=== PATIENT | male | born 1965 | race Caucasian/White ===

== ENCOUNTER 2020-02-03 09:44 | Emergency (ER) | payer OTHER, SELFPAY ==
--- NOTE | ~2020-02-03 | XR_ITS ---
EXAMINATION: XR elbow RT min 3V EXAM DATE: 02/03/2020 10:14 INDICATION: Initial encounter following injury, with pain of the right elbow. TECHNIQUE: Right elbow frontal, lateral with flexion, and oblique projections obtained and reviewed. There is no prior study for comparison. FINDINGS: There are no acute fractures or dislocations identified. There is no subcutaneous gas. T here is soft tissue swelling elbow posteriorly. There are no radiopaque foreign bodies. 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 IMPRESSION: 1. XR elbow RT min 3V exam without acute osseous findings. 2. Soft tissue swelling. 3. Osteoarthritis. Reviewed, dictated and finalized at location B.
--- NOTE | ~2020-02-03 | US_ITS ---
EXAMINATION: US venous doppler UE RT EXAM DATE: 02/03/2020 10:39 INDICATION: Right arm pain, edema. TECHNIQUE: Multiple grayscale, color flow, Doppler sonographic images of the right upper extremity ve ins obtained by technologist. Compression was performed where able. There is no prior study for silviano ayala. FINDINGS: Right upper extremity: Jugular vein: ------------> Normal. Subclavian vein: --------> Normal. Axillary vein:------------> Normal. Brachial vein:-----------> Normal. Basilic vein: ------------> Normal. Cephalic vein: ----------> Normal. Radial vein: ------------> Normal. Ulnar vein: > Normal. IMPRESSION: No deep venous thrombosis of the right upper extremity. Reviewed, dictated and finalized at location B.
--- NOTE | 2020-02-03 09:53 | ED.EXTPRO ---
HPI - Extremity Problem General Chief complaint: Extremity Injury, Upper Stated complaint: arm injury Time Seen by Provider: 02/03/20 09:52 Source: patient Mode of arrival: ambulatory Limitations: no limitations History of Present Illness HPI Narrative: Patient is a 54-year-old male who presents for evaluation of right upper extremity swelling and pain. Patient states pain began on Monday after a very heavy refrigerator door under pressure swung open, smashing into his right elbow. Patient reports worsening pain and swelling at the right elbow that extends into the hand since that time. He reports difficulty with movement. He reports that the area is warm, mildly red. No history of skin infection in the past. No lacerations or abrasions from the impact from the door. Patient has no pain at the shoulder. No numbness. He is right-hand dominant. Related Data Home Medications Medication Instructions Recorded Confirmed No Home Medications 02/03/20 02/03/20 Allergies Allergy/AdvReac Type Severity Reaction Status Date / Time iodine Allergy Mild Unknown Verified 02/03/20 10:17 Review of Systems Review of Systems: Narrative: CONSTITUTIONAL: Denies fever, chills, or sweats. CARDIOVASCULAR: Denies chest pain, palpitations, or edema. RESPIRATORY: Denies cough or dyspnea. GASTROINTESTINAL: Denies abdominal pain, nausea, vomiting, or diarrhea. GENITOURINARY: Denies dysuria or hematuria. SKIN: Denies rash or itching. MUSCULOSKELETAL: Denies back pain, reports right elbow pain, reports swelling of the right forearm and hand NEUROLOGIC: Denies headache, numbness, or weakness. [facility] Past Medical History Medical History (Updated 02/03/20 @ 13:44 by Livia Kasper MD) Hypertension Social History Social History (Updated 02/03/20 @ 10:01 by Livia Kasper MD) Smoking status: Current every day smoker Alcohol intake: never Substance use: never Gender identity (if verbalized by the patient): Male Exam Narrative: Exam Narrative: GENERAL: Awake, alert, conversant HEAD: Normocephalic, atraumatic. EYES: PERRLA and EOMI. scleral icterus present. ENT: Nares clear, no rhinorrhea or epistaxis. Mucous membranes moist. NECK: Supple. CHEST: No respiratory distress, breathing even and non labored HEART: Regular rate, sinus rhythm ABDOMEN:Non distended, non tender EXTREMITIES: Full range of motion at the right elbow, edematous, erythematous, tender to palpation. Edema extends through the right forearm into the right hand. There is a 1 cm healing abrasion/wound to the lateral aspect of the right forearm, nonfluctuant, no purulence. Radial pulse 2+. Intact sensation median, ulnar, radial nerve distribution. Capillary refill less than 3 seconds. SKIN: Warm, dry, no rash. Patient is jaundiced. NEURO:No focal deficits. Alert and oriented x3 Course Vital Signs Vital signs: Vital Signs Temperature 36.6 C 02/03/20 10:00 Pulse Rate 117 H 02/03/20 10:00 Respiratory Rate 16 02/03/20 10:00 Blood Pressure 155/99 H 02/03/20 10:00 Pulse Oximetry 100 02/03/20 10:00 Temperature 36.6 C 02/03/20 10:00 Pulse Rate 98 02/03/20 12:40 Respiratory Rate 16 02/03/20 12:40 Blood Pressure 142/87 H 02/03/20 12:40 Pulse Oximetry 98 02/03/20 12:40 Procedures Orthopedic Splinting/Casting Injury #1: Splinting/Casting Date: 02/03/20 Splinting/Casting Time: 13:41 Side: right Upper Extremity Injury Location: upper arm Upper Extremity Immobilizer: sling/shoulder immobilizer and posterior splint Splint: customized in ED Pre-Procedure Neuro Vascular Exam: normal Post-Procedure Neuro Vascular Exam: normal MDM - Extremity (Nontraumatic) MDM Narrative Medical decision making narrative: Patient presented initially for elbow pain in the setting of a trauma to the elbow, and initial radiographic reads are negative, but after speaking with Dr. Chapman he was concerned
[2020-02-03 10:00] VITALS: BP 155/99; PULSE 117; RESP 16; TEMP 36.6; O2SAT 100
[2020-02-03 10:18] LABS: Basophils Percent Auto 0.5 % (0.2-1.2); Eosinophils Percent Auto 0.2 % (0-4.4); Hematocrit 32.9 % (42.0-52.0); Hemoglobin 11.5 g/dL (14.0-18.0); Immature Granulocyte Absolute 0.02 K/mm3 (0.00-0.031); Immature Granulocyte Percent A 0.3 % (0-0.5); Immature Platelet Fraction Pct 3.7 % (0.9-11.2); Lymphocytes Absolute Auto 0.95 K/mm3 (0.9-3.2); Lymphocytes Percent Auto 14.4 % (18.3-44.2); Mean Corpuscular Hemoglobin 41.1 pg (26-34); Mean Corpuscular Volume 117.5 fl (80-100); Mean Platelet Volume 10.1 fl (7.4-10.4); Monocytes Absolute Auto 0.9 K/mm3 (0.1-0.6); Monocytes Percent Auto 13.9 % (2.6-8.5); Neutrophils Absolute Auto 4.7 K/mm3 (1.3-6.7); Neutrophils Percent Auto 70.7 % (45.5-73.1); Platelet Count Result 72 k/mm3 (150-375); Red Cell Distribution Width 14.7 % (11.5-14.5); White Blood Count 6.6 K/mm3 (4.5-10.0)
[2020-02-03 10:28] LABS: Anion Gap 2 mmol/L (8-16); Blood Urea Nitrogen 10 mg/dL (9-20); CRP 2.5 mg/dL (<1.0); Calcium 8.7 mg/dL (8.4-10.2); Carbon Dioxide 33 mmol/L (22-30); Chloride 101 mmol/L (98-107); Estimated CRCL calculation 126 ml/min; Estimated Glomerular Filt Rate > 60; Glucose 167 mg/dL (75-110); Potassium 3.9 mmol/L (3.4-5.0); Sodium 136 mmol/L (137-145)
[2020-02-03 11:11] LABS: Erythrocyte Sedimentation Rate 83 mm/hr (0-20)
[2020-02-03 12:40] VITALS: BP 142/87; PULSE 98; RESP 16; O2SAT 98
[2020-02-03 12:57] LABS: Alanine Aminotransferase 48 U/L (4-50); Albumin Level 3.2 g/dL (3.5-5.1); Alkaline Phosphatase 205 U/L (38-126); Anion Gap 5 mmol/L (8-16); Aspartate Amino Transferase 71 U/L (17-59); Blood Urea Nitrogen 11 mg/dL (9-20); Calcium 8.9 mg/dL (8.4-10.2); Carbon Dioxide 31 mmol/L (22-30); Chloride 99 mmol/L (98-107); Estimated CRCL calculation 145 ml/min; Estimated Glomerular Filt Rate > 60; Glucose 165 mg/dL (75-110); Lipase 220 U/L (23-300); Potassium 3.9 mmol/L (3.4-5.0); Sodium 135 mmol/L (137-145)
[2020-02-03 14:00] VITALS: BP 135/80; PULSE 108; RESP 14; O2SAT 100
== END 2020-02-03 14:00 | disposition home or self-care (01) ==
PROVIDERS: Emergency Provider Emergency Medicine
DX: S52.124A Nondisplaced fracture of head of right radius, initial encounter for closed fracture (principal); I10 Essential (primary) hypertension; F17.200 Nicotine dependence, unspecified, uncomplicated; M19.021 Primary osteoarthritis, right elbow; D64.89 Other specified anemias; R17 Unspecified jaundice; E80.6 Other disorders of bilirubin metabolism; D69.6 Thrombocytopenia, unspecified; W22.8XXA Striking against or struck by other objects, initial encounter
CPT/HCPCS: 29105; 36415; 73080; 80048; 80053; 83690; 85025; 85055; 85652; 86140; 93971; 99284; A4565

== ENCOUNTER 2020-03-30 12:30 | Outpatient (RCR) | payer OTHER, SELFPAY ==
--- NOTE | 2020-03-06 15:44 | PTOPEVAL ---
Thank you for referring Sailaja Esposito III to [facility].? The patient is scheduled to be seen for therapy? 2-3 x/week for 4 weeks. Please review, sign, date and return this plan of care APURVA. I agree with and certify that the following plan of care is medically necessary. Referring Physician Date Attending Provider: Evaristo Chapman MD Referring Provider: Evaristo Chapman MD *PT Outpatient Evaluation Start: 03/06/20 13:33 Freq: Status: Active Protocol: Document 03/06/20 13:35 ANIKA (Rec: 03/06/20 14:34 ANIKA [id number]) Therapy Assessment Status Assessment Status Assessment Status Evaluation Outpatient Past Medical History Past Medical History Source of Past Medical History Patient,Recalled from Previous Visit, Confirmed with Patient /Family Respiratory History Hx Other Respiratory Disorders Yes: +SMOKER Musculoskeletal History Hx Orthopedic Surgery Yes: R LEG REPAIR- s/p ORIF Evaluation Information Problem Diagnosis right forearm contusion Onset 02/01/20 Cause door hitting arm Additional Evaluation Detail no fracture on x-ray. 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 He is unable to perform job duties due to his pain and limitations. Subjective Information He opened a door on a grain Query Text:As Reported By Patient/ truck that was under pressure Family when the door slammed into his arm. He finished work and worked the next day until the pain was untolerable. 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 He has increased pain with yard work. The pain will wake him at night. He is able to get 2 hours of sleep at night. He reports difficulty with ADL's especially donning/doffing shirts. He is unable to carson riding his motorcycle. He is unable to perform his normal fitness routine due to pain. Prior Level of Function Activity Level (Last 3 Months) Hand Dominance Right Pain Assessment Timing of Pain Assessment Timing of Pain Assessment Assessment
--- NOTE | 2020-03-13 09:23 | PCPTNOTE ---
Patient called & cancelled scheduled appointment this date due to reason unknown. Attempted to call pt,but no voicemail set-up.
--- NOTE | 2020-03-24 12:56 | PCPTNOTE ---
Patient did not show up for scheduled appointment this date. Called and he stated he thought his appointment was tomorrow.
--- NOTE | 2020-04-02 10:06 | PCPTNOTE ---
Pt called to cancel hie remaining visits due to MD sending pt for additional testing. Will DC pt's chart at this time.
--- NOTE | 2020-04-02 10:08 | PCPTNOTE ---
Admitting Provider: Attending Provider: Evaristo Chapman MD Patient:Sailaja Esposito III Date of :1965 Discharge Note Additional therapy visits have been cancelled due to patient has been sent for additional testing by the doctor. Limited progress towards therapy goals noted due to continued pain and symptoms. Patient?s initial visit was on 03/06/2020 13:15 and he had a total of 7 visits. The goals have been not met. Thank you for referring this patient to [facility]. Please review, sign, date and return this discharge summary APURVA. I have been updated about the patient's current status and I agree with discharge from the above service at this time. Referring Physician Date
== END 2020-04-02 14:17 | disposition home or self-care (01) ==
LOC: ANHPT 12:30
PROVIDERS: Referring Provider Orthopaedic Surgery; Visit Provider Orthopaedic Surgery
DX: S50.11XA Contusion of right forearm, initial encounter (principal)
CPT/HCPCS: 97035; 97110; 97140; 97162

== ENCOUNTER 2020-04-17 01:57 | Outpatient (CLI) | payer OTHER, SELFPAY ==
[2020-04-17 20:00] LABS: SARS-CoV-2 RNA PCR Positive
== END 2020-04-17 01:58 | disposition home or self-care (01) ==
LOC: ANHCOVIDDT 01:57
PROVIDERS: Visit Provider Orthopaedic Surgery
DX: U07.1 COVID-19 (principal)
CPT/HCPCS: 87635; C9803; U0003

== ENCOUNTER 2020-04-17 07:31 | Outpatient (CLI) | payer OTHER, SELFPAY ==
--- NOTE | 2020-04-17 08:31 | ECG_ITS ---
Measurements Intervals [place] Rate: 101 P: 24 HI: 130 QRS: 79 QRSD: 91 T: 61 QT: 347 QTc: 452 Interpretive Statements SINUS TACHYCARDIA BORDERLINE ECG Electronically Signed On 04-17-2020 8:48:30 ADOPTION AGENT by Iván Aguillon D.O.
== END 2020-04-17 07:32 | disposition home or self-care (01) ==
PROVIDERS: Visit Provider Anesthesiology
DX: Z87.891 Personal history of nicotine dependence (principal); Z01.818 Encounter for other preprocedural examination; R94.31 Abnormal electrocardiogram [ECG] [EKG]
CPT/HCPCS: 93005

== ENCOUNTER 2020-04-20 02:34 | Day surgery (SDC) | payer OTHER, SELFPAY ==
[2020-04-16 10:29] VITALS: BMI 26.0
--- NOTE | 2020-04-17 14:25 | P.PNAN_ITS ---
Anes - Initial Pre Proc Eval Procedure: Operation Date: 04/20/20 14:00 Proposed Procedures p Debridement Right Olecranon Bursa - Evaristo Chapman MD Date/Time: 04/17/20 14:25 Surgeon: Evaristo hCapman MD Pre Op Diagnosis: right olecranon bursitis Patient Data Age: 54 Gender: M Height: 1.92 m Weight: 95.9 kg Allergies Allergy/AdvReac Type Severity Reaction Status Date / Time iodine Allergy Mild SHELLFISH Verified 04/16/20 10:29 - TOPICAL IS OK TO USE Home Medications Medication Instructions Recorded Confirmed Type No Home Medications 02/03/20 04/16/20 History Patient hx anesthesia problems: none Family hx anesthesia problems: none [facility] Past Medical History Medical History (Updated 04/17/20 @ 14:25 by Manuelito Hendrickson DO) BMI 26.0-26.9,adult Deficient knowledge of leg surgery Olecranon bursitis of right elbow Family History Family History Father Hypertension Heart disease Social History Social History Smoking status: Current every day smoker Second hand tobacco smoke exposure: Yes Additional smoking assessment comments: STATES DOWN TO 1PK/2-3DAYS FROM 1PK/DAY 25+YRS Alcohol intake: current Drinks per week: 2 Substance use: never Substance use type: does not use Living arrangements: alone 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 Gender identity (if verbalized by the patient): Male Spiritual care concerns: No Anes - Eval Final PreProcedure Day of Procedure 04/17/20 14:25 Patient weight: overweight Heart: regular rate and rhythm Lungs: clear to auscultation and normal air movement Airway: Mallampati scale class II Neurological: alert and oriented Last oral intake: >/= 8 hours ASA classification: II Emergent: no Anesthetic plan: proceed Anesthesia type and monitoring: general LMA and standard monitoring Informed Consent: The patient's anesthetic plan and its attendant risks and benefits were discussed with the patient/family/POA. Questions were solicited and answers provided to the satisfaction of the patient/family/POA.
[2020-04-20] VITALS (7 sets, daily range): BP systolic 123–158; BP diastolic 73–96; PULSE 81–131; RESP 10–16; TEMP 37.1; O2SAT 99–100
[2020-04-20] MEDS: ACETAMINOPHEN 500 MG TABLET 1000 MG PO (13:30)
--- NOTE | 2020-04-20 13:56 | WPDHPUPDATE1 ---
History and Physical Update Update Date/Time: 04/20/20 13:56 History and Physical has been reviewed, including an updated exam of the patient. There are NO changes in the patient's condition. Risks, benefits, and alternatives have been discussed and questions answered. Patient agrees to proceed with procedure.
[2020-04-20] MEDS: LACTATED RINGERS 1,000 ML 30 ML IV CONT ×2 (14:00→14:58)
[2020-04-20] MEDS: KETOROLAC 15 MG/ML VIAL (*BKC) IV PUSH (14:00)
[2020-04-20] MEDS: ceFAZolin 2 GM/D5W 50 ML 2 GM/50 ML BAG IVPB (14:34)
[2020-04-20] MEDS: TRANEXAMIC ACID 1,000 MG/10 ML AMPUL 1000 MG IV PUSH (14:41)
--- NOTE | 2020-04-20 15:14 | P.OP_ITS ---
Procedure Note - Detailed Date of procedure: 04/20/20 Pre-op diagnosis: right olecranon bursitis Septic right olecranon bursitis Post-op diagnosis: same Procedure performed: Debridement and closure right olecranon bursa Description of procedure: Patient was identified and proper site identified. He was actually is prepped preoperatively, had the surgery, and recovered all in the operating room because of his COVID positive status. The right upper extremity was noted to have some erythema over the elbow. Small pinhole that was seen previously again noted. No significant fluctuance was appreciated. After general anesthetic induction and intubation, he was put into the left lateral decubitus position taking care to properly pad and position is torso and extremities. A nonsterile tourniquet was placed high on the right arm which was then prepped and draped usual sterile fashion. Antibiotics were held until after cultures were able to be obtained. The extremity was gravity exsanguinated and the tourniquet was inflated to 250 mmHg remaining up for 13 minutes. Longitudinal incision was made over the olecranon posteriorly. There was quite a bit of edematous injury did tissue overlying the olecranon. Deep culture was taken at this point. There were two distinct pockets that were able to be identified corresponding to what was seen on the MRI. The small sinus tract was excised. One of the pockets tracked up into the triceps for a distance of about 3 cm but there was a clear terminus. The other tracked distally along the posterior border the olecranon. It also had a clear terminus. Right over the tip of the olecranon there was some exposed bone. All of the granulation tissue was curetted. There was no significant areas of deteriorating bone found over the tip of the olecranon, consistent with what was seen on the MRI.. After a thorough curetting and removal of devitalized tissue including excising the sinus tract, a sponge with sterile saline was used to gently debride the wound further. The tourniquet was released. The skin edges were quite friable. The sinus tract was reapproximated and then skin edges reapproximated with three 0 nylon suture. A sterile dressing was applied. The IV antibiotics were administered as soon as the tourniquet was released. Estimated blood loss 50 cc. He was recovered in the operating room. There were no known intraoperative complications. Anesthesia: [facility] Surgeon: Evaristo Chapman MD Estimated blood loss (mL): 50 Tourniquet time (min): 13 Drains: No Packing: No Pathology: yes (Deep wound culture taken) Complications: No immediate complications Condition: stable Disposition: other (Recovered in the operating room)
[2020-04-20] MEDS: fentaNYL CITRATE INJ (*CRX) 100 MCG/2 ML VIAL 25 MCG IV PUSH ×8 (15:15→15:28)
--- NOTE | 2020-04-20 16:47 | SUR.PHASEII ---
PT WAS TAKEM CARE OF FOR PHASE 1 AND MOST OF PHASE 2 IN THE OR. WHEN PT WAS STABLE, HE WAS TRANSPORTED BACK TO THE PREOP BATHROOM THAT WAS DESIGNATED FOR PT TO GET DRESSED. HE WAS GIVEN INSTRUCTIONS AND THEN TRANSPORTED TO THE SURGICAL ENTRANCE AWNING WHERE HIS SISTER WAS WAITING FOR PICKUP. PT RECOVERED WITH OUT INCIDENT.
== END 2020-04-20 16:00 | disposition home or self-care (01) ==
PROVIDERS: Visit Provider Orthopaedic Surgery
PROC: (CPT 24110; principal; 2020-04-20 14:00)
DX: M70.21 Olecranon bursitis, right elbow (principal); F17.200 Nicotine dependence, unspecified, uncomplicated
CPT/HCPCS: 24105; 87070; 87075; 87147; 87186; 87205; A9270; J0690; J1100; J1885; J2250; J2405; J2704; J3010; J7120

== ENCOUNTER 2020-06-11 13:52 | Inpatient (IN) | payer SELFPAY ==
[2020-06-11] VITALS (10 sets, daily range): BP systolic 106–136; BP diastolic 61–85; PULSE 98–126; RESP 14–20; TEMP 36.2–36.9; O2SAT 96–100; BMI 26.9
--- NOTE | ~2020-06-11 | CT_ITS ---
EXAMINATION: CT diagnostic chest wo con DATE: 06/13/2020 10:19 INDICATION: Cough. Esophageal and liver mass TECHNIQUE: Computed tomography (CT) of the chest was performed without intravenous contrast. Automate d exposure control and iterative reconstruction technique were employed. Exam dose: 328.12 mGy-cm to connor exam DLP. COMPARISON: 2 view chest 12/04/2013 CT chest 06/11/2020 CT abdomen pelvis FINDINGS: There is prominent focal soft tissue thickening in the right apical area which is considera dennis diminished compared to 12/04/2013 and is likely some residual scarring. Consider PET/CT scan if cli nically indicated to exclude any possible right apical lung cancer. 3 mm right upper lobe nodule (series 4 image 29) 4.5 mm right upper lobe nodule (image 32) 5 mm right upper lobe nodule (image 45). 7.4 mm right upper lobe nodule (image 47) There are scattered smaller right lung nodules. 11 mm groundglass left upper lobe nodule (image 49) There is mild infiltrate and/atelectasis in the right lower lobe, primarily in the periphery. There is asymmetric soft tissue mass density in the lower left cervical area suggesting lymphadenopat hy. Consider PET/CT scan for further evaluation. There is soft tissue thickening of the upper thoracic esophagus. Otherwise no hilar or mediastinal ma ss lesion or lymphadenopathy. Normal heart size. Coronary artery calcifications. No pericardial effusion. There is surface nodularity of the liver consistent with cirrhosis. Ascites is noted. Probable focal splenic infarct posteromedially. Multiple recently reported hepatic space-occupying mass lesions sugg est possible hepatocellular carcinoma and/or metastatic disease. Diffuse osteopenia. IMPRESSION: Left lower cervical soft tissue mass or lymphadenopathy Left apical soft tissue thickening which may represent scarring; malignancy is not excluded. Consider PET/CT imaging Scattered pulmonary nodules; metastatic disease cannot be excluded Cirrhosis, ascites Multiple hepatic space-occupying mass lesions. Primary hepatocellular carcinoma and/or metastatic dis ease must be considered Reviewed, dictated and finalized at [facility]. Reviewed, dictated and finalized at location [facility]. ACCOUNTING CLERK IMPRESSION: Left lower cervical soft tissue mass or lymphadenopathy Left apical soft tissue thickening which may represent scarring; malignancy is not excluded. Consider PET/CT imaging Scattered pulmonary nodules; metastatic disease cannot be excluded Cirrhosis, ascites Multiple hepatic space-occupying mass lesions. Primary hepatocellular carcinoma and/or metastatic disease must be considered
--- NOTE | ~2020-06-11 | XR_ITS ---
EXAMINATION: XR abdomen/kub 1V INDICATION: Abdominal distention, right proximal ureteral stone TECHNIQUE: Supine views of the abdomen were obtained on 2 radiographs. COMPARISON: CT from yesterday FINDINGS: The right proximal ureteral stone described on the comparison CT examination is not definit arina identified. There are multiple gas-filled loops of large and small bowel. No free intraperitoneal gas is identified. IMPRESSION: 1. Known right-sided stone not definitely identified. Reviewed, dictated and finalized at location [facility]. GENERATION REPRESENTATIVE
--- NOTE | ~2020-06-11 | CT_ITS ---
EXAMINATION: CT abdomen pelvis w con INDICATION: Abdominal distention, jaundice TECHNIQUE: Computed tomographic images of the abdomen and pelvis were obtained after the administrati on of 100 cc of Omnipaque 350 intravenous contrast. The dose-length product (DLP) was 1060.83 mGy-cm. Automated exposure control and iterative reconstruction technique were employed. COMPARISON: None available FINDINGS: Minimal dependent atelectasis is present in the lung bases. The heart size is normal. There is nodularity of the liver surface. There is an ill-defined 7.2 x 5.8 cm mass in liver segment VII. There are smaller lesions scattered throughout the liver which measure up to 1.1 cm in liver segment II. There is a moderate volume of ascites. There is recanalization of the umbilical vein. The spleen, pancreas, and adrenal glands are normal. There is mild wall thickening of the gallbladder, likely re lated to liver disease. There is a 4 mm stone of the proximal right ureter which causes mild right hy dronephrosis. A 2 mm nonobstructing stone is present in the right kidney lower pole. There is a 3 mm nonobstructing stone in the lower pole of the left kidney. There is calcified atherosclerosis of the aorta and many of the other arteries. There is mild periportal lymphadenopathy. Gastrohepatic ligamen t lymph nodes are upper limits of normal in size. There is no free intraperitoneal gas or evidence of bowel obstruction. There is severe lumbar spondylosis. IMPRESSION: 1. Cirrhosis with portal hypertension and moderate volume of ascites. 2. Ill-defined mass in the right hepatic lobe measuring up to 7.2 cm which could reflect malignancy o r possibly liver abscess. 3. 4 mm stone of the proximal right ureter with mild right hydronephrosis. 4. Bilateral nonobstructing nephrolithiasis. Reviewed, dictated and finalized at location [facility]. 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 Cirrhosis with portal hypertension and moderate volume of ascites. 2. Ill-defined mass in the right hepatic lobe measuring up to 7.2 cm which coul d reflect malignancy or possibly liver abscess. 3. 4 mm stone of the proximal right ureter with mild right hydronephrosis. 4. Bilateral nonobstructing nephrolithiasis.
--- NOTE | 2020-06-11 14:09 | ECG_ITS ---
Measurements Intervals [place] Rate: 104 P: 76 MN: 137 QRS: 76 QRSD: 98 T: 52 QT: 356 QTc: 469 Interpretive Statements SINUS TACHYCARDIA INCOMPLETE RIGHT BUNDLE BRANCH BLOCK BORDERLINE ST-T WAVE ABNORMALITY- ANTEROLAT/INF LEADS BASELINE ARTIFACT- V4 BORDERLINE ECG Electronically Signed On 06-11-2020 16:04:32 FRUIT THINNER MACHINE OPERATOR by Iván Aguillon D.O.
[2020-06-11] MEDS: SODIUM CHLORIDE 0.9% IV 1,000 ML 999 ML IV CONT ×2 (14:17→15:52)
[2020-06-11] MEDS: PANTOPRAZOLE SODIUM IV 40 MG VIAL IV PUSH (14:18)
[2020-06-11] MEDS: ONDANSETRON INJ 4 MG/2 ML VIAL IV PUSH ×2 (14:18→19:30)
[2020-06-11 14:27] LABS: Basophils Percent Auto 0.2 % (0.2-1.2); Eosinophils Percent Auto 0.2 % (0-4.4); Hematocrit 22.9 % (42.0-52.0); Hemoglobin 7.8 g/dL (14.0-18.0); Immature Granulocyte Absolute 0.07 K/mm3 (0.00-0.031); Immature Granulocyte Percent A 0.7 % (0-0.5); Lymphocytes Absolute Auto 1.27 K/mm3 (0.9-3.2); Mean Corpuscular HGB Conc 34.1 g/dl (32-36); Mean Corpuscular Hemoglobin 38.2 pg (26-34); Mean Corpuscular Volume 112.3 fl (80-100); Mean Platelet Volume 11.2 fl (7.4-10.4); Monocytes Absolute Auto 1.3 K/mm3 (0.1-0.6); Monocytes Percent Auto 11.8 % (2.6-8.5); Neutrophils Percent Auto 75.1 % (45.5-73.1); Platelet Count Result 80 k/mm3 (150-375); Red Blood Count 2.04 M/mm3 (4.6-6.20); White Blood Count 10.6 K/mm3 (4.5-10.0)
[2020-06-11 14:36] LABS: INR 1.8; Prothrombin Time 21.1 Seconds (11.1-14.7)
[2020-06-11 14:37] LABS: Partial Thromboplastin Time 32.5 SECONDS (22.3-36.8)
[2020-06-11 14:44] LABS: Albumin Level 2.3 g/dL (3.5-5.1); Alkaline Phosphatase 117 U/L (38-126); Anion Gap 8 mmol/L (8-16); Aspartate Amino Transferase 54 U/L (17-59); Bilirubin,Total 2.8 mg/dL (0.2-1.3); Blood Urea Nitrogen 32 mg/dL (9-20); Calcium 7.8 mg/dL (8.4-10.2); Carbon Dioxide 27 mmol/L (22-30); Chloride 96 mmol/L (98-107); Estimated CRCL calculation 69 ml/min; Estimated Glomerular Filt Rate 57; Glucose 238 mg/dL (75-110); Lipase 56 U/L (23-300); Potassium 3.7 mmol/L (3.4-5.0); Sodium 131 mmol/L (137-145)
[2020-06-11 14:45] LABS: Lactic Acid Reflex 6.2 mmol/L (0.7-2.1)
[2020-06-11 14:49] LABS: Alanine Aminotransferase 31 U/L (4-50)
[2020-06-11 15:21] LABS: Ethanol < 10 mg/dL (<10)
--- NOTE | 2020-06-11 15:36 | ED.GENADULT ---
HPI - General Adult General Chief complaint: Unspecified Stated complaint: blood in stool/vomit Time Seen by Provider: 06/11/20 14:02 History of Present Illness HPI narrative: Patient is a 34-year-old gentleman who presents emerged part with chief complaint of vomiting blood and blood in stool. Patient states that he has noticed that his abdomen started feeling uncomfortable and then started feeling very nauseated and has had vomit that is consistent with blood clots. Patient states has had black tarry stool patient reports that he felt as though his heart was beating fast and felt weak. Related Data Allergies Allergy/AdvReac Type Severity Reaction Status Date / Time shellfish derived Allergy Other Verified 06/12/20 12:45 Review of Systems Review of Systems: Narrative: A 10 system review of systems was completed on the patient and is negative except for what is stated in the HPI. Nursing and ancillary documentation was reviewed. [facility] Past Medical History Medical History Acute blood loss anemia BMI 26.0-26.9,adult Cirrhosis of liver Decompensated hepatic cirrhosis Deficient knowledge of leg surgery Hematemesis Lactic acidosis Melena MRSA infection Right elbow Thrombocytopenia UGI bleed Surgical History Surgical History H/O foot surgery ORIF of right foot Olecranon bursitis of right elbow Debridement April 20, 2020 Family History Family History Father Hypertension Heart disease Social History Social History Social History: The patient told me that he has not drink in 2 weeks. The last time he drank was vodka with juice. He stated that he would go drink beer with the guys after work and when they played cards he would drink heavily. He stated that he did not drink every day. The patient stated that he has not been smoking cigarettes over the last 3 weeks. He stated that he started smoking at the age of 17 or 18 at least a pack a cigarettes a day. He is single and never been . He has no children. 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 He lives alone. He does not have a durable power claim attorney for healthcare and desires to be a full code. 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 HEAD: Normocephalic, atraumatic. EYES: PERRLA and EOMI. ENT: Nares clear, no rhinorrhea or epistaxis. Mucous membranes moist. NECK: Supple. CHEST: Clear to auscultation. No respiratory distress. HEART: Tachycardic rate and rhythm. No murmur heard. Normal peripheral pulses. ABDOMEN: Soft, mild tenderness to palpation distended, normal active bowel sounds. EXTREMITIES: Normal range of motion. No edema. SKIN: Warm, dry, no rash. NEURO: No focal deficits. Alert and oriented x3. PSYCH: Normal mood and affect. Course Vital Signs Vital signs: Vital Signs Temperature 36.7 C 06/11/20 14:02 Pulse Rate 126 H 06/11/20 14:02 Respiratory Rate 16 06/11/20 14:02 Blood Pressure 106/64 06/11/20 14:02 Pulse Oximetry 100 06/11/20 14:02 Temperature 36.9 C 06/12/20 16:00 Pulse Rate 88 06/12/20 18:00 Respiratory Rate 16 06/12/20 18:00 Blood Pressure 136/72 06/12/20 18:00 Pulse Oximetry 99 06/12/20 18:00 Medical Decision Making Vital Signs Vital Signs: Vital Signs Temperature 36.7 C
[2020-06-11 16:15] LABS: Add Urine Microscopic? YES; Appearance Urine Cloudy (Clear); Bilirubin Urine Negative (Negative); Blood Urine 3+ (Negative); Color Urine Amber (Yellow); Glucose Urine UA 1+ mg/dL (Negative); Hyaline Casts Urine 15-19 /lpf; Ketones Urine Negative (Negative); Leukocyte Esterase Ur 3+ LEU/UL (Negative); Mucus Urine Rare /lpf; Nitrate Urine Negative (Negative); Protein Urine 1+ mg/dL (Negative); RBC Urine 51-75 /hpf (0-2); WBC Urine >75 /hpf
[2020-06-11 16:18] LABS: Specific Grav Ur 1.049 (1.001-1.035)
[2020-06-11 16:19] LABS: Hematocrit 23.1 % (42.0-52.0)
[2020-06-11] MEDS: SODIUM CHLORIDE 0.9% IV 250 ML 30 ML IV CONT (17:19)
[2020-06-11 17:26] LABS: Reflex Lactic Acid Yes or No Add Lactic
[2020-06-11 18:08] LABS: Lactic Acid 3.7 mmol/L (0.7-2.1)
[2020-06-11] MEDS: SODIUM CHLORIDE 0.9% IV 1,000 ML 125 ML IV CONT (19:05)
--- NOTE | 2020-06-11 19:12 | ADMGEN ---
This patient, Sailaja Esposito III, was admitted to Intensive Care Unit-1. Patient/family oriented to hospital policies and general routines including ID bracelet, bed and alarms, visiting hours, pain management, procedures, bathroom and other care routines, personal items, smoking policy, room service/diet, and visiting hours. Information on how to activate the Rapid Response Team has been discussed. Patient/Family are encouraged to report perceived risks to care and to ask questions if they do not understand what they are told or what they should do.
--- NOTE | 2020-06-11 20:28 | PM.IMHP ---
H&P: HPI History of Present Illness Date/Time: 06/11/20 20:28 Chief Complaint: Coffee-ground emesis Narrative: Sailaja Esposito III is a 54 year old male who stated that he has not drink any alcohol and at least 2 weeks. He stated that he did feel that he was drinking that heavily. He stated that he would typically get off of work and go to the bar have a couple drinks with his buddies or if they were playing cards then he would drink heavily at that point. Patient stated that he does not drink every day. He typically drinks beer but here lately he has been drinking vodka with pineapple juice and orange juice and his last drink was about 2 weeks ago. The patient is not on any medications or had any past medical history. The patient stated that he has been taking some Advil for his right elbow infection. He stated that he only took 2 Advil a day for last 2 days. He stated that they really did not help him. Last night he started throwing up dark colored emesis and having dark colored diarrhea. This went on through the night and this morning he decided to call an ambulance. The patient has never had any colonoscopies or endoscopies. He has never seen a GI doctor. He does not routinely go to the doctor. Hemoglobin was 7.8 when he came to the emergency room he was given a unit of blood now it is 8.0. He still continues to complain of nausea and I gave him some Zofran. It looks like in January of 2020 his H&H was 11.5 and 32.9. 6.2 and is now 3.7. Of the abdomen which was read as cirrhosis with portal hypertension to moderate volume of ascites. Ill-defined mass in the right hepatic lobe measuring up to 7.2 cm which could reflect malignancy or possibly liver abscess. 4 mm stone in the proximal right ureter with mild right hydronephrosis. Bilateral nonobstructing nephrolithiasis. The patient was started on a Protonix drip, IV fluids, octreotide and Zofran. GI has been consulted and electronic parts designer as well. The patient has completed a unit of blood. The patient is being admitted to inpatient status on the date of service 06/11/2020. Review of Systems Review of Systems: All systems reviewed & are unremarkable except as noted in HPI and below Constitutional: Constitutional: Reports as per HPI and Reports no additional constitutional complaints Eyes: Eyes: Reports as per HPI and Reports no additional eye complaints ENT: Reports system reviewed and no additional complaints, except as documented and Reports Normal hearing present Cardiovascular: Cardiovascular: Reports no additional cardiovascular complaints Respiratory: Respiratory: Reports no additional respiratory complaints and Reports no additional respiratory complaints Gastrointestinal: Gastrointestinal: Reports as per HPI and Reports no additional gastrointestinal complaints Musculoskeletal: Musculoskeletal: Reports no additional musculoskeletal complaints Integumentary/Breasts: Skin/Breast: Reports system reviewed and no additional complaints, except as docu and Reports as per HPI Neurologic: Reports system reviewed and no additional complaints, except as documented, Reports as per HPI and Reports Normal hearing present Psychiatric: Psychiatric: Reports no additional psychiatric complaints and Reports as per HPI Endocrine: Endocrine: Reports no additional endocrine complaints Hematologic/Lymphatic: Hematologic/Lymphatic: Reports no additional hematologic/lymphatic complaints Allergic/Immunologic: Allergic/Immunologic: Reports no additional allergic/immunologic complaints PMFSH Past Medical History Medical History (Updated 06/11/20 @ 20:37 by Joslyn Gillespie NP) BMI 26.0-26.9,adult Deficient knowledge of leg surgery MRSA infection Right elbow Surgical History Surgical History (Updated 06/11/20 @ 20:37 by Joslyn Gillespie NP) H/O foot surgery ORIF of right foot Olecranon bursitis of right elbow Debridement April 20, 2020 Family History Family History (Reviewed
[2020-06-11] MEDS: SILVER SULFADIAZINE 1% CR 50 GM JAR (*BKC) 1 APPLIC TOPICAL (23:03)
[2020-06-12] VITALS (20 sets, daily range): BP systolic 81–136; BP diastolic 34–77; PULSE 84–104; RESP 16–22; TEMP 36.3–36.9; O2SAT 92–100
[2020-06-12 04:58] LABS: Basophils Percent Auto 0.4 % (0.2-1.2); Eosinophils Absolute Auto 0.1 K/mm3 (0-0.3); Eosinophils Percent Auto 0.7 % (0-4.4); Hematocrit 23.7 % (42.0-52.0); Hemoglobin 8.4 g/dL (14.0-18.0); Immature Granulocyte Absolute 0.07 K/mm3 (0.00-0.031); Immature Granulocyte Percent A 0.7 % (0-0.5); Immature Platelet Fraction Pct 4.7 % (0.9-11.2); Lymphocytes Absolute Auto 1.24 K/mm3 (0.9-3.2); Lymphocytes Percent Auto 12.6 % (18.3-44.2); Mean Corpuscular HGB Conc 35.4 g/dl (32-36); Mean Corpuscular Hemoglobin 37.7 pg (26-34); Mean Corpuscular Volume 106.3 fl (80-100); Mean Platelet Volume 10.4 fl (7.4-10.4); Monocytes Percent Auto 10.2 % (2.6-8.5); Neutrophils Absolute Auto 7.5 K/mm3 (1.3-6.7); Neutrophils Percent Auto 75.4 % (45.5-73.1); Platelet Count Result 55 k/mm3 (150-375); Red Blood Count 2.23 M/mm3 (4.6-6.20); Red Cell Distribution Width 20.2 % (11.5-14.5); White Blood Count 9.9 K/mm3 (4.5-10.0)
[2020-06-12 05:10] LABS: Ammonia < 9 umol/L (9-30)
[2020-06-12 05:12] LABS: Alanine Aminotransferase 25 U/L (4-50); Alkaline Phosphatase 100 U/L (38-126); Anion Gap 2 mmol/L (8-16); Aspartate Amino Transferase 52 U/L (17-59); Blood Urea Nitrogen 32 mg/dL (9-20); Calcium 7.3 mg/dL (8.4-10.2); Carbon Dioxide 30 mmol/L (22-30); Chloride 102 mmol/L (98-107); Estimated CRCL calculation 69 ml/min; Estimated Glomerular Filt Rate 57; Glucose 270 mg/dL (75-110); Lipase 55 U/L (23-300); Magnesium 1.6 mg/dL (1.6-2.3); Potassium 4.2 mmol/L (3.4-5.0); Sodium 134 mmol/L (137-145)
[2020-06-12] MEDS: SODIUM CHLORIDE 0.9% IV 1,000 ML 125 ML IV CONT ×3 (06:14→23:30)
[2020-06-12 09:44] LABS: Hematocrit 23.7 % (42.0-52.0); Hemoglobin 8.3 g/dL (14.0-18.0)
[2020-06-12 09:54] LABS: Lactic Acid Reflex 1.9 mmol/L (0.7-2.1)
--- NOTE | 2020-06-12 10:38 | WPDURCON ---
Assessment and Plan Assessment and plan (1) Ureteral stone: Code(s): N20.1 - Calculus of ureter Status: Acute Assessment and Plan: He is currently asymptomatic from a stone standpoint. He denies any flank pain. He denies any urinary symptoms. He denies any symptoms of infection. His urinalysis does look contaminated with mucus. A culture is pending. He has several other medical issues going on right now including cirrhosis, liver mass, anemia, MRSA infection of the elbow. I will get a KUB. I will start him on Flomax. The stone is small and we will monitor for stone passage. If he develops significant pain or fevers with symptoms of infection we may have to intervene in the form of a stent. In the meantime his medical issues will need to be stabilized. (2) Hydronephrosis: Code(s): N13.30 - Unspecified hydronephrosis Status: Acute Urology Consult Note HPI Date Seen: 06/12/20 Requesting Physician: Rose Taylor MD Primary Care Provider: HOSPICE SUPERINTENDENT PHYSICIAN Consult Narrative Narrative: Sailaja Esposito III is a 54 year old male who was admitted to the ICU with multiple medical problems. He has a liver mass which is being worked up. He has signs of cirrhosis including a side ease and jaundice. He has been having emesis and bloody stools which is led to anemia requiring transfusion. He has had a CT scan on this admission which shows a 4 mm proximal ureteral stone on the right with mild hydronephrosis. He denies any flank pain. He states he has a rib pain when he coughs. He denies any previous stone history. He denies any symptoms of urinary tract infection. He denies any gross hematuria. He denies any dysuria. He denies any fevers. Review of Systems Review of Systems: All systems reviewed & are unremarkable except as noted in HPI and below PMFSH Past Medical History Medical History (Updated 06/12/20 @ 10:43 by Sukhi Kennedy MD) BMI 26.0-26.9,adult Deficient knowledge of leg surgery MRSA infection Right elbow Surgical History Surgical History (Updated 06/11/20 @ 20:37 by Joslyn Gillespie NP) H/O foot surgery ORIF of right foot Olecranon bursitis of right elbow Debridement April 20, 2020 Family History Family History Father Hypertension Heart disease Social History Social History (Updated 06/11/20 @ 20:39 by Joslyn Gillespie NP) Social History: The patient told me that he has not drink in 2 weeks. The last time he drank was vodka with juice. He stated that he would go drink beer with the guys after work and when they played cards he would drink heavily. He stated that he did not drink every day. The patient stated that he has not been smoking cigarettes over the last 3 weeks. He stated that he started smoking at the age of 17 or 18 at least a pack a cigarettes a day. He is single and never been . He has no children. 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 He lives alone. He does not have a durable power civil rights attorney for healthcare and desires to be a full code. Smoking status: Current every day smoker Second hand tobacco smoke exposure: Yes Additional smoking assessment comments: STATES DOWN TO 1PK/2-3DAYS FROM 1PK/DAY 25+YRS Alcohol intake: former Drinks per week: 2 Substance use: never Substance use type: does not use Additional occupation/education comments: [employer] Gender identity (if verbalized by the patient): Male Spiritual care concerns: No Meds Home Medications and Allergies Home Medications Medication Instructions Recorded Confirmed Type silver sulfadiazine 1 % topical 1 applic TOPICAL BID #85 g 06/02/20 06/11/20 Rx cream Allergies Allergy/AdvReac Type Severity Reaction Status Date / Time shellfish derived Allergy Other Verified 06/11/20 14:37 Vital Signs Vital Signs - 24 hr 06/11/20 14:02 06/11/20 16:18 06/11/20 17:24 Temperature 98.1 F
[2020-06-12 10:44] LABS: Iron 90 ug/dL (49-181)
--- NOTE | 2020-06-12 10:47 | WPDCNINT ---
Assessment and Plan Assessment and plan (1) UGI bleed: Code(s): K92.2 - Gastrointestinal hemorrhage, unspecified Status: Acute Assessment and Plan: Most likely variceal bleeding. Rule out peptic ulcer disease Patient received 2 units of packed red cells yesterday. Continue octreotide infusion IV PPI q.12 hours GI consulted and plan for EGD Continue monitoring hemoglobin Vitamin K 10 mg subcu x1 IV fluids IV Rocephin for SBP prophylaxis (2) Hydronephrosis: Code(s): N13.30 - Unspecified hydronephrosis Status: Acute Assessment and Plan: Patient seen by Urology. No intervention planned at this time (3) Ureteral stone: Code(s): N20.1 - Calculus of ureter Status: Acute Assessment and Plan: See above (4) Liver mass: Code(s): R16.0 - Hepatomegaly, not elsewhere classified Status: Acute Assessment and Plan: Ultrasound-guided biopsy is ordered Blood cultures ordered Empiric antibiotics Rocephin and Flagyl for now although it does not appear to be abscess from history. Patient is afebrile and has normal white cell count (5) Cirrhosis of liver: Code(s): K74.60 - Unspecified cirrhosis of liver Status: Acute Assessment and Plan: Workup for cirrhosis is ordered by GI although most secondary to alcohol use (6) UTI (urinary tract infection): Code(s): N39.0 - Urinary tract infection, site not specified Status: Acute Assessment and Plan: IV Rocephin Urine and blood cultures ordered (7) Ascites: Code(s): R18.8 - Other ascites Status: Acute Assessment and Plan: Patient has significant ascites on exam. Although patient is not symptomatic or tender, it is going to make liver biopsy difficult per radiology. Will proceed with diagnostic and therapeutic paracentesis before liver biopsy as per recommendations from radiology Additional Plan DVT prophylaxis -SCDs Stress ulcer prophylaxis -PPI Nutrition -NPO Code Status -patient requests to be Full Code Hunting Sales Associate Consult Note Consult date: 06/12/20 Time Seen: 09:00 HPI: Sailaja Esposito III is a 54 year old male who has not seen a physician in long time presented yesterday with chief complaint of vomiting blood and blood in his stool. Patient told me that he was fine until redness day when he vomited bright red blood and then soon noticed black stools. He had only 1 episode of vomiting but had multiple episodes where he had black stools. Later his stools turned to be watery. He did not had any abdominal pain at that time. He said he waited for a day but did not feel good hence came to the hospital. He denies chest pain shortness of breath hematuria cough chest pain. He states that he has not been out of his house for last 1 week. Denies contact with anyone with COVID-19. Also has not received COVID-19 vaccine yet He has not seen a physician in long time accept elbow surgery had from a injury at work. He told me he smokes 1 pack per day for close to 35 years but his last cigarette was 2-3 weeks ago He also drinks six-pack every day almost daily but has not had any drinks for last 2-3 weeks Review system was also positive for inverted umbilicus, he yellowness in eyes, dark urine. All other systems were reviewed and were negative Review of Systems Review of Systems: All systems reviewed & are unremarkable except as noted in HPI and below (HPI) [facility] Past Medical History Medical History BMI 26.0-26.9,adult Deficient knowledge of leg surgery MRSA infection Right elbow Surgical History Surgical History H/O foot surgery ORIF of right foot Olecranon bursitis of right elbow Debridement April 20, 2020 Family History Family History Father Hypertension Heart disease Social History Social H
[2020-06-12 10:53] LABS: Percent Iron Saturation 58 % (20-50)
[2020-06-12] MEDS: SILVER SULFADIAZINE 1% CR 50 GM JAR (*BKC) 1 APPLIC TOPICAL ×2 (11:30→20:28)
[2020-06-12] MEDS: PANTOPRAZOLE SODIUM IV 40 MG VIAL IV PUSH ×2 (11:30→20:28)
[2020-06-12 11:42] LABS: Glucose Point of Care 249 (65-105)
[2020-06-12] MEDS: INSULIN ASPART (*BKC) 100 UNITS/ML SUB-Q ×2 (11:57→20:34)
[2020-06-12] MEDS: CALCIUM GLUC 1,000 MG/NS 50 ML 1,000 MG/50 ML BAG 100 MG IVPB (12:11)
[2020-06-12 12:13] LABS: Hepatitis B Surface Antigen Negative (Negative)
[2020-06-12] MEDS: metroNIDAZOLE 500 MG/ISO 100ML 500 MG/100 ML BAG 100 MG IVPB ×2 (12:13→17:53)
[2020-06-12 12:19] LABS: HAV RESULT Negative (Negative); Hepatitis B Core IgM Result Negative (Negative)
[2020-06-12 12:31] LABS: Hepatitis C Virus Antibody Negative (Negative)
[2020-06-12 12:48] LABS: Ferritin > 2000.00 ng/mL (11.1-264)
[2020-06-12] MEDS: LACTATED RINGERS 1,000 ML 150 ML IV CONT (13:00)
--- NOTE | 2020-06-12 13:59 | WPDANESEPPF ---
Anes - Initial Pre Proc Eval Procedure: Operation Date: 06/12/20 14:30 Proposed Procedures p Esophagogastroduodenoscopy - Greg Peña MD Date/Time: 06/12/20 13:59 Surgeon: Rose Taylor MD Pre Op Diagnosis: GI bleed Patient Data Age: 54 Gender: M Height: 6 ft 3 in Weight: 97.6 kg Last Vital Signs Temp 97.4 F L 06/12/20 12:48 Pulse 90 06/12/20 12:55 Resp 18 06/12/20 12:55 BP 120/74 06/12/20 12:48 Pulse Ox 100 06/12/20 12:55 Allergies Allergy/AdvReac Type Severity Reaction Status Date / Time shellfish derived Allergy Other Verified 06/12/20 12:45 Home Medications Medication Instructions Recorded Confirmed Type silver sulfadiazine 1 % topical 1 applic TOPICAL BID #85 g 06/02/20 06/12/20 Rx cream Laboratory Tests 06/11/20 06/11/20 06/11/20 14:20 14:20 14:20 WBC 10.6 K/mm3 H K/mm3 (4.5-10.0) RBC 2.04 M/mm3 L M/mm3 (4.6-6.20) Hgb 7.8 g/dL L D g/dL (14.0-18.0) Hct 22.9 % L % (42.0-52.0) MCV 112.3 fl H fl (80-100) MCH 38.2 pg H pg (26-34) MCHC 34.1 g/dl g/dl (32-36) RDW 14.0 % % (11.5-14.5) Plt Count 80 k/mm3 L k/mm3 (150-375) MPV 11.2 fl H fl (7.4-10.4) Immature Gran % (Auto) 0.7 % H % (0-0.5) Neut % (Auto) 75.1 % H % (45.5-73.1) Lymph % (Auto) 12.0 % L % (18.3-44.2) Summers % (Auto) 11.8 % H % (2.6-8.5) Eos % (Auto) 0.2 % % (0-4.4) Baso % (Auto) 0.2 % % (0.2-1.2) Lymph # (Auto) 1.27 K/mm3 K/mm3 (0.9-3.2) Summers # (Auto) 1.3 K/mm3 H K/mm3 (0.1-0.6) Eos # (Auto) 0.0 K/mm3 K/mm3 (0-0.3) Baso # (Auto) 0.0 K/mm3 K/mm3 (0.0-0.1) Abs Immat Gran (auto) 0.07 K/mm3 H K/mm3 (0.00-0.031) Absolute Neuts (auto) 8.0 K/mm3 H K/mm3 (1.3-6.7) Absolute Nucleated RBC 0.0 K/mm3 K/mm3 (0.0-0.012) Nucleated RBC % 0.0 % % (0.0-0.2) % Immature Plt Fraction PT 21.1 Seconds H Seconds (11.1-14.7) INR 1.8 APTT 32.5 SECONDS SECONDS (22.3-36.8) Sodium 131 mmol/L L mmol/L (137-145) Potassium 3.7 mmol/L mmol/L (3.4-5.0) Chloride 96 mmol/L L mmol/L (98-107) Carbon Dioxide 27 mmol/L mmol/L (22-30) Anion Gap 8 mmol/L mmol/L (8-16) BUN 32 mg/dL H D mg/dL (9-20) Creatinine 1.30 mg/dL mg/dL (0.7-1.3) Estim Creat Clear Calc 69 ml/min ml/min Estimated GFR 57 L (59 - ) Glucose 238 mg/dL H mg/dL (75-110) POC Capillary Glucose Lactic Acid Calcium 7.8 mg/dL L mg/dL (8.4-10.2) Magnesium Iron TIBC % Saturation Ferritin Total Bilirubin 2.8 mg/dL H mg/dL (0.2-1.3) AST 54 U/L U/L (17-59) ALT 31 U/L U/L (4-50) Alkaline Phosphatase 117 U/L U/L (38-126) Ammonia Total Protein 6.0 g/dL L g/dL (6.3-8.2) Albumin 2.3 g/dL L g/dL (3.5-5.1) Alpha-1-AT Phenotype Ceruloplasmin Lipase 56 U/L U/L (23-300) Alpha Fetoprotein TSH (Reflex) Urine Color Urine Appearance Urine pH Ur Specific [place] Urine Protein Urine Glucose (UA) Urine Ketones Ur Blood (Man) Urine Nitrate Urine Bilirubin Urine Urobilinogen Leukocyte Esterase Rfl Urine RBC Urine WBC Hyaline Casts Urine Mucus Ethyl Alcohol JEANNETTE Screen Mitochondria M2 IgG Ab Hepatitis A IgM Ab Hep Bs Antigen Hep B Core IgM Ab
--- NOTE | 2020-06-12 14:05 | WPDGICN ---
Assessment and Plan Assessment and plan (1) GI bleed: Code(s): K92.2 - Gastrointestinal hemorrhage, unspecified Status: Acute Assessment and Plan: patient was admitted to icu, started on iv protonix and octreotide drip continue to monitor for signs of bleeding urgent egd to assess site of bleeding, differential includes varices, ulcer, esophagitis, mass (also noted liver lesion), etc more recommendations after egd (2) Hematemesis: Code(s): K92.0 - Hematemesis Status: Acute (3) Melena: Code(s): K92.1 - Melena Status: Acute Assessment and Plan: egd and medical management in icu (4) Acute blood loss anemia: Code(s): D62 - Acute posthemorrhagic anemia Status: Acute Assessment and Plan: transfuse if hb<7 trend h/h and urgent egd (5) Decompensated hepatic cirrhosis: Code(s): K72.90 - Hepatic failure, unspecified without coma; K74.60 - Unspecified cirrhosis of liver Status: Acute Assessment and Plan: new diagnosis, unknown etiology will order blood work to rule out chronic liver conditions start iv antibiotics in setting of GIB and ascites eventually will need diagnostic paracentesis (6) Ascites: Code(s): R18.8 - Other ascites Status: Acute (7) Liver mass: Code(s): R16.0 - Hepatomegaly, not elsewhere classified Status: Acute Assessment and Plan: will get AFP level, may need triple phase CT scan liver protocol and consideration of biopsy (8) Thrombocytopenia: Code(s): D69.6 - Thrombocytopenia, unspecified Status: Acute Assessment and Plan: from liver disease (9) Lactic acidosis: Code(s): E87.2 - Acidosis Status: Acute Assessment and Plan: from acute gib, improved continue medical support GI Consult Note Consult date/time: 06/12/20 14:05 Reason for consult: hematemesis, melena, new diagnosis of cirrhosis HPI: Sailaja Esposito III is a 54 year old male who has not seen a doctor in regular basis for a while and not using prescription medication. He came here with new onset of coffee ground emesis x3 with dark tarry stools, denies previous GIB or known history of liver disease. He says that is not alcoholic, only social drinker if anything. Labs showed Hemoglobin 7.8 (jan 2020 hb 11.5), inr 1.8, plat 55, albumin 2, bili 4. Lactic acidosis 6.2 but after treatment down to 1.9, ast 71, alt 48. Had CT scan that showed cirrhosis with portal hypertension to moderate volume of ascites. Ill-defined mass in the right hepatic lobe measuring up to 7.2 cm which could reflect malignancy or possibly liver abscess. 4 mm stone in the proximal right ureter with mild right hydronephrosis. Bilateral nonobstructing nephrolithiasis. The patient was started on a Protonix drip, IV fluids, octreotide and Zofran and admitted to ICU. Review of Systems Eyes: Eyes: Reports no additional eye complaints ENT: Reports system reviewed and no additional complaints, except as documented Cardiovascular: Cardiovascular: Denies chest pain Respiratory: Respiratory: Denies cough Gastrointestinal: Gastrointestinal: Reports melena, Reports nausea, Reports vomiting and Reports hematemesis Genitourinary: Genitourinary: Denies dysuria Musculoskeletal: Musculoskeletal: Denies neck pain Integumentary/Breasts: Skin/Breast: Denies rash Neurologic: Denies confusion Psychiatric: Psychiatric: Denies behavioral changes [facility] Past Medical History Medical History (Updated 06/12/20 @ 14:25 by Greg Peña MD) Acute blood loss anemia BMI 26.0-26.9,adult Cirrhosis of liver Decompensated hepatic cirrhosis Deficient knowledge of leg surgery Hematemesis Lactic acidosis Melena MRSA infection Right elbow Thrombocytopenia UGI bleed Surgical History Surgical History H/O foot surgery ORIF of right foot Olecranon bursitis of right elbow D
--- NOTE | 2020-06-12 14:32 | PM.IMPN ---
Progress Note: A&P Assessment and Plan (1) GI bleed: Code(s): K92.2 - Gastrointestinal hemorrhage, unspecified Status: Acute Assessment and Plan: GI has been consulted. Continue with Protonix drip and octreotide. urgent EGD today continue to monitor in ICU Hb 8.3 today from 7.8 (2) Liver mass: Code(s): R16.0 - Hepatomegaly, not elsewhere classified Status: Acute Assessment and Plan: Pt to have liver biopsy for liver mass seen on CT scan (3) Kidney stones: Code(s): N20.0 - Calculus of kidney Status: Acute Assessment and Plan: Continue with IV fluids. (4) Cirrhosis of liver: Code(s): K74.60 - Unspecified cirrhosis of liver Status: Inactive Assessment and Plan: The patient states that he does not drink on daily basis. admitted with melena and hematemesis rule out variceal bleed (5) Olecranon bursitis of right elbow: Code(s): M70.21 - Olecranon bursitis, right elbow Status: Resolved Assessment and Plan: Continue antibiotics. Patient has had MRSA in that right elbow. Subjective Date/time seen: 06/12/20 14:32 Interval history: 54 year old male who stated that he has not drink any alcohol and at least 2 weeks. He stated that he did feel that he was drinking that heavily. He stated that he would typically get off of work and go to the bar have a couple drinks with his buddies or if they were playing cards then he would drink heavily at that point. Pt here with melena and hematemesis pt also has a small renal stone. Pt sp blood, protonix drip and octreotide going for urgent EGD today. Review of Systems Review of Systems: All systems reviewed & are unremarkable except as noted in HPI and below Exam Const: General: no acute distress Orientation/consciousness: oriented to person, oriented to place and oriented to time HENMT: Head: atraumatic Eyes: General: appearance normal, both eyes and all related structures Neck: Neck: normal visual inspection Chest: Chest palpation & inspection: normal inspection of the chest Resp: Effort & Inspection: normal respiratory effort Cardio: Palpation: normal PMI Rate: regular rate Rhythm: regular rhythm GI: Inspection: normal to inspection Auscultation: normal bowel sounds Skin: General skin exam: normal color Lesions: no lesions Rashes: no rashes Neuro: General: oriented to person, oriented to place and oriented to time Objective Data Vital Signs Vital Signs: Vital Signs - 24 hr 06/11/20 16:18 06/11/20 17:24 06/11/20 17:40 Temperature 36.9 C 36.7 C Pulse Rate 100 100 103 H Respiratory Rate 14 19 20 Blood Pressure 136/83 120/71 119/73 Pulse Oximetry 100 100 100 06/11/20 18:40 06/11/20 19:04 06/11/20 20:00 Temperature 36.8 C 36.2 C L 36.8 C Pulse Rate 107 H 101 H 101 H Respiratory Rate 18 14 16 Blood Pressure 128/85 121/77 119/73 Pulse Oximetry 99 96 98 06/11/20 22:00 06/11/20 23:25 06/11/20 23:41 Temperature 36.5 C 36.5 C 36.8 C Pulse Rate 102 H 98 100 Respiratory Rate 15 16 18 Blood Pressure 110/63 109/61 132/74 Pulse Oximetry 98 99 98 06/12/20 00:00 06/12/20 00:41 06/12/20 01:26 Temperature 36.8 C 36.8 C 36.8 C Pulse Rate 100 96 100 Respiratory Rate 16 16 16 Blood Pressure 115/69 115/69 106/65 Pulse Oximetry 98 97 98 06/12/20 03:35 06/12/20 03:38 06/12/20 06:00 Temperature 36.8 C Pulse Rate 103 H 103 H 95 Respiratory Rate 16 16 16 Blood Pressure 104/62 120/59 L Pulse Oximetry 96 96 96 06/12/20 08:00 06/12/20 10:00 06/12/20 12:00 Temperature 36.4 C Pulse Rate 92 84 90 Respiratory Rate 18 16 18 Blood Pressure 127/77 Pulse Oximetry 92 98 100 06/12/20 12:48 06/12/20 12:55 06/12/20 14:22 Temperature 36.3 C L Pulse Rate 90 90 104 H Respiratory Rate 18 18 19 Blood Pressure 120/74 100/53 L Pulse Oximetry 100 100 98 Intake/Output Intake/Output: Intake & Output 06/09/20 06/10/20 06/11/20 06/12/20 23:59
[2020-06-12] MEDS: MAGNESIUM SULF 2 GM/WATER 50ML 2 GM/50 ML BAG IVPB (17:30)
[2020-06-12] MEDS: PHYTONADIONE INJ 10 MG/ML AMP SUB-Q (17:31)
[2020-06-12 18:01] LABS: Glucose Point of Care 202 (65-105)
[2020-06-12 20:42] LABS: Glucose Point of Care 240 (65-105)
[2020-06-12 23:50] LABS: Hematocrit 23.6 % (42.0-52.0); Hemoglobin 8.2 g/dL (14.0-18.0)
[2020-06-13] VITALS (16 sets, daily range): BP systolic 98–143; BP diastolic 50–85; PULSE 87–108; RESP 16–22; TEMP 35.6–36.8; O2SAT 96–100
[2020-06-13] MEDS: metroNIDAZOLE 500 MG/ISO 100ML 500 MG/100 ML BAG 100 MG IVPB ×5 (00:43→22:37)
[2020-06-13] MEDS: INSULIN ASPART (*BKC) 100 UNITS/ML SUB-Q ×4 (00:49→18:27)
[2020-06-13 00:54] LABS: Glucose Point of Care 222 (65-105)
[2020-06-13 04:55] LABS: Hematocrit 21.9 % (42.0-52.0); Hemoglobin 7.7 g/dL (14.0-18.0); Mean Corpuscular HGB Conc 35.2 g/dl (32-36); Mean Corpuscular Volume 105.3 fl (80-100); Mean Platelet Volume 10.5 fl (7.4-10.4); Platelet Count Result 59 k/mm3 (150-375); Red Blood Count 2.08 M/mm3 (4.6-6.20); Red Cell Distribution Width 20.2 % (11.5-14.5); White Blood Count 10.2 K/mm3 (4.5-10.0)
[2020-06-13 05:25] LABS: Alanine Aminotransferase 24 U/L (4-50); Albumin Level 1.9 g/dL (3.5-5.1); Alkaline Phosphatase 95 U/L (38-126); Anion Gap -1 mmol/L (8-16); Aspartate Amino Transferase 49 U/L (17-59); Bilirubin,Total 3.1 mg/dL (0.2-1.3); Blood Urea Nitrogen 23 mg/dL (9-20); Calcium 7.1 mg/dL (8.4-10.2); Carbon Dioxide 30 mmol/L (22-30); Chloride 105 mmol/L (98-107); Estimated CRCL calculation 81 ml/min; Estimated Glomerular Filt Rate > 60; Glucose 217 mg/dL (75-110); Magnesium 1.8 mg/dL (1.6-2.3); Potassium 3.8 mmol/L (3.4-5.0); Sodium 134 mmol/L (137-145)
[2020-06-13] MEDS: guaiFENesin/DEXTROMETHORPHAN 10 ML UDC 5 ML PO ×2 (05:41→21:14)
[2020-06-13 05:54] LABS: Glucose Point of Care 207 (65-105)
[2020-06-13] MEDS: SODIUM CHLORIDE 0.9% IV 1,000 ML 125 ML IV CONT (08:27)
[2020-06-13] MEDS: SILVER SULFADIAZINE 1% CR 50 GM JAR (*BKC) 1 APPLIC TOPICAL ×2 (08:28→20:57)
[2020-06-13] MEDS: PANTOPRAZOLE SODIUM IV 40 MG VIAL IV PUSH ×2 (08:28→20:57)
[2020-06-13] MEDS: TAMSULOSIN HCL 0.4 MG CAPSULE PO (08:29)
--- NOTE | 2020-06-13 08:50 | WPDANESPN ---
Anes - Prog Note Post-Op Date/Time: 06/13/20 08:50 Cardiovascular status: normal Respiratory status: normal Airway patency: baseline Mental status: baseline Post-Op hydration status: normal Vital Signs: Last Vital Signs Temp 36.7 C 06/13/20 04:00 Pulse 99 06/13/20 08:00 Resp 17 06/13/20 08:00 BP 98/52 L 06/13/20 06:00 Pulse Ox 99 06/13/20 08:00 Pain Score (VAS): 0 I/O: Intake & Output 06/12/20 06/13/20 06/13/20 23:59 07:59 15:59 Intake Total 1340 2339 Output Total 750 Balance 1340 1589 Laboratory Tests 06/13/20 04:47 06/13/20 04:47 06/12/20 06/12/20 06/12/20 09:34 09:34 10:14 WBC RBC Hgb 8.3 L Hct 23.7 L MCV MCH MCHC RDW Plt Count MPV Sodium Potassium Chloride Carbon Dioxide Anion Gap BUN Creatinine Estim Creat Clear Calc Estimated GFR Glucose POC Capillary Glucose Lactic Acid 1.9 Calcium Magnesium Iron 90 TIBC 155 L % Saturation 58 H Ferritin > 2000.00 H Total Bilirubin AST ALT Alkaline Phosphatase Total Protein Albumin Alpha-1-AT Phenotype Ceruloplasmin Alpha Fetoprotein JEANNETTE Screen Mitochondria M2 IgG Ab Hepatitis A IgM Ab Hep Bs Antigen Hep B Core IgM Ab Hepatitis C Ab Screen 06/12/20 06/12/20 06/12/20 10:14 10:14 10:14 WBC RBC Hgb Hct MCV MCH MCHC RDW Plt Count MPV Sodium Potassium Chloride Carbon Dioxide Anion Gap BUN Creatinine Estim Creat Clear Calc Estimated GFR Glucose POC Capillary Glucose Lactic Acid Calcium Magnesium Iron TIBC % Saturation Ferritin Total Bilirubin AST ALT Alkaline Phosphatase Total Protein Albumin Alpha-1-AT Phenotype Pending Ceruloplasmin Pending Alpha Fetoprotein JEANNETTE Screen Pending Mitochondria M2 IgG Ab Hepatitis A IgM Ab Negative Hep Bs Antigen Negative Hep B Core IgM Ab Negative Hepatitis C Ab Screen Negative 06/12/20 06/12/20 06/12/20 10:14 10:15 11:14 WBC RBC Hgb Hct MCV MCH MCHC RDW Plt Count MPV Sodium Potassium Chloride Carbon Dioxide Anion Gap BUN Creatinine Estim Creat Clear Calc Estimated GFR Glucose POC Capillary Glucose 249 H Lactic Acid Calcium Magnesium Iron TIBC % Saturation Ferritin Total Bilirubin AST ALT Alkaline Phosphatase Total Protein Albumin Alpha-1-AT Phenotype Ceruloplasmin Alpha Fetoprotein Pending JEANNETTE Screen Mitochondria M2 IgG Ab Pending Hepatitis A IgM Ab Hep Bs Antigen Hep B Core IgM Ab Hepatitis C Ab Screen 06/12/20 06/12/20 06/12/20 17:33 20:28 23:42 WBC RBC Hgb 8.2 L Hct 23.6 L MCV MCH MCHC RDW Plt Count MPV Sodium Potassium Chloride Carbon Dioxide Anion Gap BUN Creatinine Estim Creat Clear Calc Estimated GFR Glucose POC Capillary Glucose 202 H 240 H Lactic Acid Calcium Magnesium Iron TIBC % Saturation Ferritin Total Bilirubin AST ALT Alkaline Phosphatase Total Protein Albumin Alpha-1-AT Phenotype Ceruloplasmin Alpha Fetoprotein JEANNETTE Screen Mitochondria M2 IgG Ab Hepatitis A IgM Ab Hep Bs Antigen Hep B Core IgM Ab Hepatitis C Ab Screen 06/13/20 06/13/20 06/13/20 00:48 04:47 04:47 WBC 10.2 H RBC 2.08 L Hgb 7.7 L Hct 21.9 L MCV 105.3 H MCH 37.0 H MCHC 35.2 RDW 20.2 H Plt Count 59 L MPV 10.5 H Sodium 134 L Potassium 3.8 Chloride 105 Carbon Dioxide 30 Anion Gap -1 L BUN 23 H Creatinine 1.10 Estim Creat Clear Calc 81 Estimated GFR > 60 Glucose 217 H POC Capillary Glucose 222 H Lactic Acid Calcium
--- NOTE | 2020-06-13 09:07 | WPDINTPN ---
Progress Note: A&P Assessment and Plan (1) UGI bleed: Code(s): K92.2 - Gastrointestinal hemorrhage, unspecified Status: Inactive Assessment and Plan: Most likely variceal bleeding. Rule out peptic ulcer disease Patient received 2 units of packed red cells yesterday. PPI IV q.12 hours and continue octreotide infusion Endoscopy on 06/12/2020 showed malignant-appearing upper esophageal mass, hiatal hernia, gastritis GI recommended transferring patient to a tertiary center, hospitalist is working on it IV Rocephin for SBP prophylaxis (2) Hydronephrosis: Code(s): N13.30 - Unspecified hydronephrosis Status: Acute Assessment and Plan: Patient seen by Urology. No intervention planned at this time (3) Ureteral stone: Code(s): N20.1 - Calculus of ureter Status: Acute Assessment and Plan: See above (4) Liver mass: Code(s): R16.0 - Hepatomegaly, not elsewhere classified Status: Acute Assessment and Plan: Ultrasound-guided biopsy is ordered Blood cultures ordered Empiric antibiotics Rocephin and Flagyl for now although it does not appear to be abscess from history. Patient is afebrile and has normal white cell count (5) Cirrhosis of liver: Code(s): K74.60 - Unspecified cirrhosis of liver Status: Inactive Assessment and Plan: Workup for cirrhosis is ordered by GI although most secondary to alcohol use (6) UTI (urinary tract infection): Code(s): N39.0 - Urinary tract infection, site not specified Status: Acute Assessment and Plan: Urine cultures 06/11/2020 growing MRSA -septum to vein -started on vancomycin Blood cultures with Gram-positive cocci in clusters (7) Ascites: Code(s): R18.8 - Other ascites Status: Acute Assessment and Plan: Patient has significant ascites on exam. Although patient is not symptomatic or tender, it is going to make liver biopsy difficult per radiology. Since the patient was being transferred to a tertiary center liver biopsy was canceled Additional Plan DVT prophylaxis -SCDs Stress ulcer prophylaxis -PPI Nutrition -liquid diet Code Status -patient requests to be Full Code Critical care time spent: 31 minutes -patient be transferred to intermediate Unit Subjective Date/time seen: 06/13/20 09:07 Interval history: REASON FOR CONSULT: GI bleed, esophageal mass, liver mass, hydronephrosis, UTI 06/13/2020: Patient seen and examined, is awake, alert, oriented. Denies any chest pain, abdominal pain, nausea vomiting this time. Urine output has been adequate, patient is afebrile. Hemoglobin 7.7 with platelet count of 59 this morning. 50s within normal limits, T bili of 3.1. Patient on Protonix IV q.12 hours and octreotide infusion per GI Review of Systems Review of Systems: All systems reviewed & are unremarkable except as noted in HPI and below (HPI) Exam Narrative: Exam Narrative: General: Pt is alert awake and in NAD Lungs/Chest: Trachea central Clear BS B/L, No crackles or wheezing. Cardiac: RRR. Normal S1 S2. No murmurs Circulation: Pedal pulses are intact and symmetrical. Abdomen: Normal bowel sounds.. Soft distended, inverted umbilicus, fluid thrill and shifting dullness present, no tenderness Extremities: No clubbing, cyanosis or edema. Warm : Song in place Neurologic: Follows commands. Moves all 4 extremities PERRL Skin: No Rash HEENT-icterus Objective Data Vital Signs Vital Signs: Vital Signs - 24 hr 06/12/20 10:00 06/12/20 12:00 06/12/20 12:48 Temperature 97.4 F L Pulse Rate 84 90 90 Respiratory Rate 16 18 18 Blood Pressure 120/74 Pulse Oximetry 98 100 100 06/12/20 12:55 06/12/20 14:00 06/12/20 14:22 Temperature Pulse Rate 90 85 104 H Respiratory Rate 18 18 19 Blood Pressure 124/68 100/53 L Pulse Oximetry 100 99 98 06/12/20 14:32 06/12/20 14:49 06/12/20 14:57 Temperature Pulse Rate 98 88 86 Respiratory
--- NOTE | 2020-06-13 10:25 | WPDGIPROGNO ---
Progress Note: A&P Assessment and Plan (1) Esophageal mass: Code(s): K22.8 - Other specified diseases of esophagus Status: Acute Assessment and Plan: most likely malignancy but I did not take biopsies because low platelets but most importantly could not rule out 100% vascular source or varices (given new diagnosis of cirrhosis), also he has possible liver mass probably will benefit from going to tertiary hospital for EUS of esophagus to assess tissue, staging and biopsies if appropriate continue in the meantime with iv protonix and monitor for signs of bleeding, he is also on antibiotics CT chest also ordered to assess mass in esophagus (2) Hematemesis: Code(s): K92.0 - Hematemesis Status: Acute (3) Acute blood loss anemia: Code(s): D62 - Acute posthemorrhagic anemia Status: Acute Assessment and Plan: no melena today, continue to monitor (4) Decompensated hepatic cirrhosis: Code(s): K72.90 - Hepatic failure, unspecified without coma; K74.60 - Unspecified cirrhosis of liver Status: Acute Assessment and Plan: new diagnosis, hepatitis panel negative pending work up (5) Thrombocytopenia: Code(s): D69.6 - Thrombocytopenia, unspecified Status: Acute Assessment and Plan: from liver disease (6) Liver mass: Code(s): R16.0 - Hepatomegaly, not elsewhere classified Status: Acute Assessment and Plan: also ordered AFP level (7) Ascites: Code(s): R18.8 - Other ascites Status: Acute Assessment and Plan: will get fluid to assess if sbp, also cytology Subjective Date/time seen: 06/13/20 10:25 Interval history: patient is feeling better, no more coffee ground emesis in fact just had breakfast. Review of Systems Review of Systems: All systems reviewed & are unremarkable except as noted in HPI and below Exam Const: General: no acute distress HENMT: General nose exam: Normal nares present Eyes: General: appearance normal, both eyes and all related structures Neck: Neck: supple Resp: Effort & Inspection: normal respiratory effort Cardio: Rate: regular rate GI: Inspection: distended GI Palp: No Firmness to palpation present (GI), No Tenderness to palpation present (GI) and No Guarding due to palpation present (GI) Percussion: Yes Fluid wave present Auscultation: normal bowel sounds Skin: General skin exam: no erythema Neuro: Speech: normal speech Motor exam (neuro): Normal motor muscle tone present throughout Extrem: General: normal to inspection Psych: Mental Status: mental status grossly normal Objective Data Vital Signs Vital Signs: Vital Signs - 24 hr 06/12/20 12:00 06/12/20 12:48 06/12/20 12:55 Temperature 97.4 F L Pulse Rate 90 90 90 Respiratory Rate 18 18 18 Blood Pressure 120/74 Pulse Oximetry 100 100 100 06/12/20 14:00 06/12/20 14:22 06/12/20 14:32 Temperature Pulse Rate 85 104 H 98 Respiratory Rate 18 19 21 H Blood Pressure 124/68 100/53 L 81/44 L Pulse Oximetry 99 98 99 06/12/20 14:49 06/12/20 14:57 06/12/20 16:00 Temperature 98.4 F Pulse Rate 88 86 88 Respiratory Rate 17 16 17 Blood Pressure 90/34 L 116/72 136/70 Pulse Oximetry 100 97 99 06/12/20 18:00 06/12/20 20:00 06/12/20 22:00 Temperature 98.1 F Pulse Rate 88 88 96 Respiratory Rate 16 22 H 20 Blood Pressure 136/72 111/57 L 104/59 L Pulse Oximetry 99 99 98 06/13/20 00:00 06/13/20 02:00 06/13/20 04:00 Temperature 98.3 F 98.1 F Pulse Rate 99 97 94 Respiratory Rate 18 20 20 Blood Pressure 105/50 L 104/59 L 110/67 Pulse Oximetry 100 100 99 06/13/20 06:00 06/13/20 08:00 Temperature Pulse Rate 96 99 Respiratory Rate 16 17 Blood Pressure 98/52 L Pulse Oximetry 96 99 Intake/Output Intake/Output: Intake & Output 06/10/20 06/11/20 06/12/20 06/13/20 23:59 23:59 23:59 23:59 Intake Total 2350 4240 2339 Output Total 995 750 Balance 2359 3054 9125 Meds/Res
[2020-06-13 12:52] LABS: Glucose Point of Care 295 (65-105)
--- NOTE | 2020-06-13 13:49 | PC.NURSE ---
Pt transferred to room 202 via WC on tele monitor; pt tx to OSH. IVF and octreotide infusing. VSS, pt A&Ox4 and in no distress at time of transfer. Report given to Naomi HERRERA.
--- NOTE | 2020-06-13 14:49 | PM.IMPN ---
Progress Note: A&P Assessment and Plan (1) GI bleed: Qualifiers: GI bleed type/associated pathology: unspecified gastrointestinal hemorrhage type Qualified Code(s): K92.2 - Gastrointestinal hemorrhage, unspecified Code(s): K92.2 - Gastrointestinal hemorrhage, unspecified Status: Acute Assessment and Plan: GI has been consulted. Continue with Protonix drip and octreotide. SP EGD see results esophegeal mass found (2) Liver mass: Code(s): R16.0 - Hepatomegaly, not elsewhere classified Status: Acute Assessment and Plan: Pt to have liver biopsy for liver mass seen on CT scan Pt had ct chest and abdomen and cT chest (3) Kidney stones: Code(s): N20.0 - Calculus of kidney Status: Acute Assessment and Plan: STop fluids (4) Cirrhosis of liver: Code(s): K74.60 - Unspecified cirrhosis of liver Status: Inactive Assessment and Plan: The patient states that he does not drink on daily basis. admitted with melena and hematemesis found to have esophegeal mass (5) Olecranon bursitis of right elbow: Code(s): M70.21 - Olecranon bursitis, right elbow Status: Resolved Assessment and Plan: Continue antibiotics. Patient has had MRSA in that right elbow. Subjective Date/time seen: 06/13/20 14:49 Interval history: 54 year old male who stated that he has not drink any alcohol and at least 2 weeks. He stated that he did feel that he was drinking that heavily. He stated that he would typically get off of work and go to the bar have a couple drinks with his buddies or if they were playing cards then he would drink heavily at that point. Pt was found to have a esophageal mass , will need transfer to higher level of care i called [facility]. for GI services. awaiting CT chest results for patient. CT abdomen shows liver mass, ascites and kidney stone. Pt is SP EGD, CT SCAN of chest and abdomen. I called GI regarding transfer DR Cornell he wants all results first CT chest result not back at that time. Review of Systems Review of Systems: All systems reviewed & are unremarkable except as noted in HPI and below Exam Const: General: no acute distress Orientation/consciousness: oriented to person, oriented to place and oriented to time HENMT: Head: atraumatic Eyes: General: appearance normal, both eyes and all related structures Neck: Neck: normal visual inspection Chest: Chest palpation & inspection: normal inspection of the chest Resp: Effort & Inspection: normal respiratory effort Cardio: Palpation: normal PMI Rate: regular rate Rhythm: regular rhythm GI: Inspection: other (abdomen is distended with ascites ) Auscultation: normal bowel sounds Skin: General skin exam: normal color Lesions: no lesions Rashes: no rashes Neuro: General: oriented to person, oriented to place and oriented to time Objective Data Vital Signs Vital Signs: Vital Signs - 24 hr 06/12/20 14:57 06/12/20 16:00 06/12/20 18:00 Temperature 36.9 C Pulse Rate 86 88 88 Respiratory Rate 16 17 16 Blood Pressure 116/72 136/70 136/72 Pulse Oximetry 97 99 99 06/12/20 20:00 06/12/20 22:00 06/13/20 00:00 Temperature 36.7 C 36.8 C Pulse Rate 88 96 99 Respiratory Rate 22 H 20 18 Blood Pressure 111/57 L 104/59 L 105/50 L Pulse Oximetry 99 98 100 06/13/20 02:00 06/13/20 04:00 06/13/20 06:00 Temperature 36.7 C Pulse Rate 97 94 96 Respiratory Rate 20 20 16 Blood Pressure 104/59 L 110/67 98/52 L Pulse Oximetry 100 99 96 06/13/20 08:00 06/13/20 10:00 06/13/20 10:28 Temperature 36.6 C Pulse Rate 91 88 Respiratory Rate 18 17 Blood Pressure 98/57 L 104/57 L Pulse Oximetry 97 97 99 06/13/20 11:38 06/13/20 12:00 Temperature Pulse Rate 88 87 Respiratory Rate 17 19 Blood Pressure 107/67 Pulse Oximetry 97 97 Intake/Output Intake/Output: Intake & Output 06/10/20 06/11/20 06/12/20 06/13/20 23:59 23:59 23:59 23
[2020-06-13 16:29] LABS: Glucose Point of Care 245 (65-105)
[2020-06-13 18:24] LABS: Hematocrit 24.4 % (42.0-52.0); Hemoglobin 8.5 g/dL (14.0-18.0)
[2020-06-13 20:38] LABS: Glucose Point of Care 210 (65-105)
[2020-06-14] VITALS (12 sets, daily range): BP systolic 119–159; BP diastolic 61–92; PULSE 84–119; RESP 16–24; TEMP 35.6–36.4; O2SAT 97–100
[2020-06-14 04:51] LABS: Hemoglobin 7.7 g/dL (14.0-18.0); Mean Corpuscular Hemoglobin 38.1 pg (26-34); Mean Corpuscular Volume 108.9 fl (80-100); Mean Platelet Volume 10.5 fl (7.4-10.4); Platelet Count Result 60 k/mm3 (150-375); Red Blood Count 2.02 M/mm3 (4.6-6.20); Red Cell Distribution Width 19.3 % (11.5-14.5); White Blood Count 7.4 K/mm3 (4.5-10.0)
[2020-06-14 05:09] LABS: Alanine Aminotransferase 23 U/L (4-50); Albumin Level 1.9 g/dL (3.5-5.1); Alkaline Phosphatase 120 U/L (38-126); Anion Gap -1 mmol/L (8-16); Aspartate Amino Transferase 46 U/L (17-59); Blood Urea Nitrogen 15 mg/dL (9-20); Carbon Dioxide 29 mmol/L (22-30); Chloride 103 mmol/L (98-107); Estimated CRCL calculation 81 ml/min; Estimated Glomerular Filt Rate > 60; Glucose 257 mg/dL (75-110); Magnesium 1.7 mg/dL (1.6-2.3); Potassium 3.5 mmol/L (3.4-5.0); Sodium 131 mmol/L (137-145)
[2020-06-14] MEDS: metroNIDAZOLE 500 MG/ISO 100ML 500 MG/100 ML BAG 100 MG IVPB ×3 (05:46→19:02)
[2020-06-14 08:06] LABS: Glucose Point of Care 245 (65-105)
[2020-06-14] MEDS: INSULIN ASPART (*BKC) 100 UNITS/ML SUB-Q ×3 (08:24→19:03)
[2020-06-14] MEDS: PANTOPRAZOLE SODIUM IV 40 MG VIAL IV PUSH (08:24)
[2020-06-14] MEDS: HYDROcodone/acetaminophen (*CRX) 10-325 MG TABLET 1 TAB PO ×3 (08:26→19:02)
[2020-06-14] MEDS: MORPHINE SULFATE (*CRX) 2 MG/ML INJ IV PUSH ×2 (09:27→15:29)
[2020-06-14] MEDS: TAMSULOSIN HCL 0.4 MG CAPSULE PO (09:28)
[2020-06-14] MEDS: SILVER SULFADIAZINE 1% CR 50 GM JAR (*BKC) 1 APPLIC TOPICAL (09:28)
--- NOTE | 2020-06-14 09:38 | WPDGIPROGNO ---
Progress Note: A&P Assessment and Plan (1) Esophageal mass: Code(s): K22.8 - Other specified diseases of esophagus Status: Acute Assessment and Plan: most likely malignancy but I did not take biopsies because low platelets but most importantly could not rule out 100% vascular source or varices CT chest reviewed today with multiple findings (Left lower cervical soft tissue mass. left apical soft tissue thickening which may represent scarring, scattered pulmonary nodules; metastatic disease cannot be excluded. Cirrhosis, ascites and multiple hepatic space-occupying mass lesions. Primary hepatocellular carcinoma and/or metastatic disease must be considered) AFP level is pending transfer to tertiary hospital given decompensated cirrhosis and mass in esophagus, may need EUS of esophagus to assess tissue, staging and biopsies if appropriate or PET scan (it seems that he may have metastatic disease- ? primary HCC, esophagus, etc) continue in the meantime with iv protonix and monitor for signs of bleeding, he is also on antibiotics ok to discontinue octreotide drip later today (2) Hematemesis: Code(s): K92.0 - Hematemesis Status: Acute Assessment and Plan: denies any more, trend h/h (3) Acute blood loss anemia: Code(s): D62 - Acute posthemorrhagic anemia Status: Acute Assessment and Plan: no melena today, continue to monitor (4) Decompensated hepatic cirrhosis: Code(s): K72.90 - Hepatic failure, unspecified without coma; K74.60 - Unspecified cirrhosis of liver Status: Acute Assessment and Plan: new diagnosis, hepatitis panel negative pending work up (5) Thrombocytopenia: Code(s): D69.6 - Thrombocytopenia, unspecified Status: Acute Assessment and Plan: from liver disease (6) Liver mass: Code(s): R16.0 - Hepatomegaly, not elsewhere classified Status: Acute Assessment and Plan: AFP level pending (7) Ascites: Code(s): R18.8 - Other ascites Status: Acute Assessment and Plan: IR will get fluid to assess if sbp, also cytology empirically on antibiotics (in setting of GIB and cirrhosis) Subjective Date/time seen: 06/14/20 09:38 Interval history: he was moved to regular floor, denies more hematemesis or abdominal pain Review of Systems Review of Systems: All systems reviewed & are unremarkable except as noted in HPI and below Exam Const: General: no acute distress HENMT: General nose exam: Normal nares present Eyes: General: appearance normal, both eyes and all related structures Neck: Neck: supple Resp: Effort & Inspection: normal respiratory effort Cardio: Rate: regular rate GI: Inspection: distended GI Palp: No Firmness to palpation present (GI), No Tenderness to palpation present (GI) and No Guarding due to palpation present (GI) Percussion: Yes Fluid wave present Auscultation: normal bowel sounds Skin: General skin exam: no erythema Neuro: Speech: normal speech Motor exam (neuro): Normal motor muscle tone present throughout Extrem: General: normal to inspection Psych: Mental Status: mental status grossly normal Objective Data Vital Signs Vital Signs: Vital Signs - 24 hr 06/13/20 10:00 06/13/20 10:28 06/13/20 11:38 Temperature Pulse Rate 88 88 Respiratory Rate 17 17 Blood Pressure 104/57 L Pulse Oximetry 97 99 97 06/13/20 12:00 06/13/20 14:00 06/13/20 16:00 Temperature Pulse Rate 87 108 H 89 Respiratory Rate 19 Blood Pressure 107/67 Pulse Oximetry 97 06/13/20 16:32 06/13/20 18:00 06/13/20 19:56 Temperature 96.0 F L 97.4 F L Pulse Rate 91 102 H 103 H Respiratory Rate 22 H 16 Blood Pressure 135/72 143/85 H Pulse Oximetry 99 100 06/13/20 20:00 06/13/20 22:00 06/14/20 00:00 Temperature 96.9 F L Pulse Rate 90 90 95 Respiratory Rate 16 Blood Pressure 123/67 Pulse Oximetry 100 100 06/14/20 02:00 06/14/20 04:00
[2020-06-14 12:04] LABS: Glucose Point of Care 276 (65-105)
--- NOTE | 2020-06-14 15:35 | PM.TDS ---
Transfer Discharge Sum: Prov Provider Date of admission: 06/11/20 15:53 Primary care physician: [employer]ICIAN Admitting clinician: Rose Taylor MD Consults: 06/11/20 15:55 Consult to Physician Routine Comment: Consulting Provider: Greg Peña Reason for consultation: GI bleed Has provider been notified: Yes Consult to Physician Routine Comment: Consulting Provider: Simon Maynard Reason for consultation: GI bleed Has provider been notified: Yes 06/12/20 Consult to Physician Routine Comment: OFFICE NOTIFIED OF CONSULT Consulting Provider: Sukhi Kennedy patternmaker wood/MD group to consult: Urology Reason for consultation: Hydronephrosis Has provider been notified: Yes DS: Admitting Diagnosis Admitting Diagnosis Admitting Diagnosis: Chief Complaint: Coffee-ground emesis Transfer Discharge Sum: Med Medications Active and Home Medications: Home Medications silver sulfadiazine 1 % topical cream 1 applic TOPICAL BID #85 g 06/02/20 [Rx Confirmed 06/12/20] Active Medications Hydrocodone Bitart/Acetaminophen (Hydrocodone/Acetaminophen (*Crx) 10-325 Mg Tablet) 1 tab PO Q4H PRN PRN Reason: Pain Rated 4-6 Last Admin: 06/14/20 14:23 Dose: 1 tab Documented by: Dextrose (Dextrose 50% 25 Gm/50 Ml Syringe) 12.5 gm IV PUSH PRN PRN; Protocol PRN Reason: Hypoglycemia Glucagon (Glucagon For Inj 1 Mg Vial) 1 mg IM PRN PRN; Protocol PRN Reason: Hypoglycemia Glucose (Glucose Oral Gel 15 Gm Of Glucse In 37.5 Gm Tube) 15 gm PO PRN PRN; Protocol PRN Reason: Hypoglycemia Guaifenesin/Dextromethorphan (Guaifenesin/Dextromethorphan 10 Ml Udc) 5 ml PO Q4H PRN PRN Reason: Cough Last Admin: 06/13/20 21:14 Dose: 5 ml Documented by: Octreotide Acetate 500 mcg/ (Dextrose) 100 mls @ 10 mls/hr IV CONT .Q10H BRAEDEN Last Admin: 06/14/20 08:25 Dose: 50 mcg/hr, 10 mls/hr Documented by: Ceftriaxone Sodium (Rocephin 2 Gm/D5w 100 Ml) 2 gm in 100 mls @ 200 mls/hr IVPB DAILY BRAEDEN Last Infusion: 06/14/20 08:53 Dose: Infused Documented by: Dextrose (Dextrose 5% 1,000 Ml) 1,000 mls @ 100 mls/hr IVPB PRN PRN; Protocol PRN Reason: Hypoglycemia Metronidazole (Flagyl 500 Mg/Iso Soln 100 Ml) 500 mg in 100 mls @ 100 mls/hr IVPB Q6HR [facility] Last Admin: 06/14/20 14:22 Dose: 100 mls/hr Documented by: Vancomycin HCl (Vancomycin 1,500 Mg/D5w 500 Ml) 1,500 mg in 500 mls @ 333.333 mls/hr IVPB Q12H [facility] Last Infusion: 06/14/20 10:26 Dose: Infused Documented by: Insulin Aspart (Insulin Aspart (*Bkc) 100 Units/Ml) 3 - 6 units SUB-Q 0800,1200,1700,2100 [facility]; Protocol Last Admin: 06/14/20 14:22 Dose: 3 units Documented by: Morphine Sulfate (Morphine Sulfate (*Crx) 2 Mg/Ml Inj) 2 mg IV PUSH Q4H PRN PRN Reason: Pain Rated 7-10 Last Admin: 06/14/20 15:29 Dose: 2 mg Documented by: Ondansetron HCl (Ondansetron Inj 4 Mg/2 Ml Vial) 4 mg IV PUSH Q4H PRN PRN Reason: Nausea And Vomiting Last Admin: 06/11/20 19:30 Dose: 4 mg Documented by: Pantoprazole Sodium (Pantoprazole Sodium Iv 40 Mg Vial) 40 mg IV PUSH Q12HR [facility] Last Admin: 06/14/20 08:24 Dose: 40 mg Documented by: Silver Sulfadiazine (Silver Sulfadiazine 1% Cr 50 Gm Jar (*Bkc)) 1 applic TOPICAL Q12HR [facility] Last Admin: 06/14/20 09:28 Dose: 1 applic Documented by: Tamsulosin HCl (Tamsulosin Hcl 0.4 Mg Capsule) 0.4 mg PO QAM [facility] Last Admin: 06/14/20 09:28 Dose: 0.4 mg Documented by: Transfer Discharge Sum: Hosp Hospital Course Hospital course: Sailaja Esposito III is a 54 year old male Patient was seen by GI and recommended that patient with decompensated cirrhosis and mass in esophagus, may need EUS of esophagus to assess tissue, staging and biopsies if appropriate or PET scan (it seems that he may have metastatic disease. I called [facility] and spoke the GI fellow, he was accepted by the fellow. will transfer the patient. Time Spent with Patient Time attestation: Total time spent providing and/or coordinating transfer services:
[2020-06-14 16:15] LABS: Glucose Point of Care 258 (65-105)
[2020-06-14 17:58] LABS: Hematocrit 22.6 % (42.0-52.0); Hemoglobin 7.7 g/dL (14.0-18.0)
--- NOTE | 2020-06-14 19:35 | PC.NURSE ---
This patient, Sailaja Esposito III, is being transferred to [facility] in [place], [place] on 06/14/20. Personal belongings sent with patient. Report given to Elisa HERRERA. Appropriate documentation sent with patient.
--- NOTE | 2020-06-14 20:12 | PC.NURSE ---
pt. transferred to [facility] as per doctors orders. Report given to [facility] ems. Report given to rn at [facility] per day shift rn.
[2020-06-16 12:57] LABS: Ceruloplasmin 26 mg/dL (18-36)
[2020-06-16 21:58] LABS: Mitochondrial (M2) Ab (IgG) <=20.0 U (<=20.0)
[2020-06-17 17:52] LABS: Alpha Fetoprotein Tumor Marker 670.6 ng/mL (<6.1)
[2020-06-18 23:08] LABS: Anti Nuclear Antibody Pattern Nuclear, Speckled; Anti Nuclear Antibody Titer 1:40 (Negative)
== END 2020-06-14 20:15 | disposition short-term general hospital (02) | DRG 280 ==
LOC: ANHED 15:37 → ANHICU 18:47 → ANHIMU 06-17 16:33
PROVIDERS: Internal Medicine; Internal Medicine Gastroenterology; Nurse Practitioner; Admitting Provider Internal Medicine; Emergency Provider Emergency Medicine; Visit Provider Family Medicine
PROC: 0DJ08ZZ Inspection of Upper Intestinal Tract, Via Natural or Artificial Opening Endoscopic (ICD-10-PCS; CPT 43235; principal; 2020-06-12 14:30)
DX: K70.31 Alcoholic cirrhosis of liver with ascites (principal); I85.11 Secondary esophageal varices with bleeding; C15.3 Malignant neoplasm of upper third of esophagus; N13.6 Pyonephrosis; B95.62 Methicillin resistant Staphylococcus aureus infection as the cause of diseases classified elsewhere; K44.9 Diaphragmatic hernia without obstruction or gangrene; K29.70 Gastritis, unspecified, without bleeding; D62 Acute posthemorrhagic anemia; R16.0 Hepatomegaly, not elsewhere classified; F17.210 Nicotine dependence, cigarettes, uncomplicated; E87.2 Acidosis; M70.21 Olecranon bursitis, right elbow; D69.59 Other secondary thrombocytopenia
CPT/HCPCS: 36415; 36430; 71250; 74018; 74177; 80053; 80074; 80307; 81001; 82104; 82105; 82140; 82390; 82728; 82948; 83520; 83540; 83550; 83605; 83690; 83735; 84443; 85014; 85018; 85025; 85027; 85055; 85610; 85730; 86038; 86039; 86850; 86900; 86901; 86923; 87040; 87077; 87086; 87088; 87147; 87186; 93005; 96361; 96374; 96375; 99285; A9270; C9113; J0610; J0696; J1815; J2001; J2270; J2354; J2405; J2704; J3370; J3430; J3475; J7030; J7050; J7060; J7120; P9016; Q9967

== ENCOUNTER 2020-09-09 11:08 | Emergency (ER) | payer MEDICAID, SELFPAY ==
[2020-09-09] VITALS (48 sets, daily range): BP systolic 85–114; BP diastolic 60–97; PULSE 91–170; RESP 10–26; TEMP 36.6–36.9; O2SAT 96–100
--- NOTE | ~2020-09-09 | XR_ITS ---
EXAMINATION: XR chest 1V portable DATE: 09/09/2020 12:33 INDICATION: Shortness of breath. TECHNIQUE: A single frontal view of the chest was obtained. COMPARISON: Chest 2 views 12/02/2013, chest CT 06/13/2020 FINDINGS: There is mild scarring at left lung apex. No pleural effusion or pneumothorax. The heart si ze is normal. There is a right internal jugular port with tip in superior vena cava. IMPRESSION: 1. Mild scarring at left lung apex. Reviewed, dictated and finalized at location B.
--- NOTE | 2020-09-09 11:34 | ECG_ITS ---
Measurements Intervals [place] Rate: 170 P: WI: 0 QRS: 72 QRSD: 94 T: 60 QT: 160 QTc: 269 Interpretive Statements ATRIAL FLUTTER/TACHYCARDIA WITH RAPID VENTRICULAR RESPONSE INCOMPLETE RIGHT BUNDLE BRANCH BLOCK DELAYED PRECORDIAL R/S TRANSITION BASELINE ARTIFACT- I, II, III, AVR, AVL, AVF, V3-V6 ABNORMAL ECG Electronically Signed On 09-09-2020 12:05:38 CDT by Iván Aguillon D.O.
[2020-09-09] MEDS: SODIUM CHLORIDE 0.9% IV 1,000 ML 999 ML IV CONT ×4 (11:40→16:06)
--- NOTE | 2020-09-09 11:55 | ED.WEAKNESS ---
HPI - Weakness General Chief complaint: Weakness Stated complaint: weakness Time Seen by Provider: 09/09/20 11:24 History of Present Illness HPI Narrative: 55 yo male w/ h/o Stage 4 esophageal cancer, cirrhosis presents to the ED for multiple complaints. He reports that he has not eaten in 5 days. He continues to drink water. He has occasional shortness of breath and chest pain. He also pain throughout his entire body including back, arms, and legs. He is being treated for his cancer at [facility]. No fever. History limited by poor historian. Related Data Home Medications Medication Instructions Recorded Confirmed metformin 500 mg tablet 500 mg PO DAILY 08/13/20 08/13/20 Allergies Allergy/AdvReac Type Severity Reaction Status Date / Time shellfish derived Allergy Other Verified 06/12/20 12:45 Review of Systems Constitutional: Constitutional: Reports fatigue, Denies fever(s) and Reports weakness Eyes: Eyes: Reports no additional eye complaints ENT: Reports dizziness and Denies sore throat Cardiovascular: Cardiovascular: Reports chest pain Respiratory: Respiratory: Reports dyspnea Gastrointestinal: Gastrointestinal: Reports abdominal pain, Denies diarrhea and Reports nausea Genitourinary: Genitourinary: Reports no additional male genitourinary complaints Musculoskeletal: Musculoskeletal: Reports back pain and Reports myalgias Neurologic: Reports dizziness, Denies focal weakness and Reports weakness PMFSH Past Medical History Medical History Acute blood loss anemia BMI 26.0-26.9,adult Cirrhosis of liver Decompensated hepatic cirrhosis Deficient knowledge of leg surgery Esophageal mass Hematemesis Lactic acidosis Melena MRSA infection Right elbow Thrombocytopenia UGI bleed Surgical History Surgical History H/O foot surgery ORIF of right foot Olecranon bursitis of right elbow Debridement April 20, 2020 Family History Family History Father Hypertension Heart disease Social History Social History Social History: The patient told me that he has not drink in 2 weeks. The last time he drank was vodka with juice. He stated that he would go drink beer with the guys after work and when they played cards he would drink heavily. He stated that he did not drink every day. The patient stated that he has not been smoking cigarettes over the last 3 weeks. He stated that he started smoking at the age of 17 or 18 at least a pack a cigarettes a day. He is single and never been . He has no children. 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 He lives alone. He does not have a durable power rodeo clown for healthcare and desires to be a full code. Smoking status: Current every day smoker Second hand tobacco smoke exposure: Yes Additional smoking assessment comments: STATES DOWN TO 1PK/2-3DAYS FROM 1PK/DAY 25+YRS Alcohol intake: former Drinks per week: 2 Substance use: never Substance use type: does not use Additional occupation/education comments: [employer] Gender identity (if verbalized by the patient): Male Spiritual care concerns: No Exam Const: General: alert and ill appearing acutely and chronically Orientation/consciousness: patient oriented x3 HENMT: Mouth: Yes dry mucous membranes Eyes: Pupils: Equal, round and reactive pupils present Neck: Neck: normal visual inspection Chest: Chest palpation & inspection: tenderness Resp: Effort & Inspection: normal respiratory effort Auscultation: clear to auscultation bilaterally Cardio: Rate: tachycardic Rhythm: regular rhythm GI: GI Palp: Yes Soft to palpation and No Tenderness to palpation present (GI) Skin: General skin exam: jaundice Neuro: General: patient oriented x3, moves all extremities, no f
[2020-09-09] MEDS: ADENOSINE IV SOLN 6 MG/2 ML VIAL IV PUSH (12:00)
--- NOTE | 2020-09-09 12:00 | PC.NURSE ---
Pt. is in SVT with HR 170. Per EDP via verbal order readback give 6mg adenosine IVP. 1200 Adenosine 6mg given, patient HR declined then went back up to 170s EDP ordered via verbal order readback to give adenosine 12mg IVP 1205 12mg of adenosine given via IVP, HR declined then increased back to 170. EKG obtained. Pt. appears to be in atrial flutter. See MAR for additional orders
[2020-09-09 12:01] LABS: Hematocrit 28.7 % (42.0-52.0); Hemoglobin 10.1 g/dL (14.0-18.0); Immature Platelet Fraction Pct 10.6 % (0.9-11.2); Mean Corpuscular HGB Conc 35.2 g/dl (32-36); Mean Corpuscular Hemoglobin 37.7 pg (26-34); Mean Corpuscular Volume 107.1 fl (80-100); Platelet Count Result 51 k/mm3 (150-375); Red Blood Count 2.68 M/mm3 (4.6-6.20); White Blood Count 17.3 K/mm3 (4.5-10.0)
[2020-09-09 12:08] LABS: INR 1.9
[2020-09-09 12:09] LABS: Partial Thromboplastin Time 34.6 SECONDS (22.3-36.8)
[2020-09-09 12:14] LABS: Lipase 48 U/L (23-300)
[2020-09-09 12:16] LABS: Alanine Aminotransferase 35 U/L (4-50); Albumin Level 2.6 g/dL (3.5-5.1); Alkaline Phosphatase 157 U/L (38-126); Anion Gap 8 mmol/L (8-16); Aspartate Amino Transferase 73 U/L (17-59); Bilirubin,Total 3.6 mg/dL (0.2-1.3); Blood Urea Nitrogen 55 mg/dL (9-20); CRP 8.9 mg/dL (<1.0); Carbon Dioxide 24 mmol/L (22-30); Chloride 89 mmol/L (98-107); Estimated CRCL calculation 36 ml/min; Estimated Glomerular Filt Rate 33; Glucose 387 mg/dL (75-110); Potassium 3.9 mmol/L (3.4-5.0); Sodium 121 mmol/L (137-145)
[2020-09-09 12:27] LABS: Troponin I 0.141 ng/mL (0.000-0.034)
--- NOTE | 2020-09-09 12:43 | PC.NURSE ---
Pt. blood pressure dropped on diltizem drip without decrease of HR. ERP aware, verbal order readback, stop diltiazem drip.
[2020-09-09 12:45] LABS: Band Neutrophils Percent 12 % (0-6); Eosinophils Absolute Manual 0.17 K/mm3 (0.02-0.5); Eosinophils Percent Manual 1 % (0-4); Lymphocytes Absolute Manual 0.86 K/mm3 (1.1-4.5); Monocytes Absolute Manual 1.55 K/mm3 (0.1-0.90); Monocytes Percent Manual 9 % (3-9); Neutrophils Percent Manual 73 % (46-73); Total Cells Counted 100
[2020-09-09 12:46] LABS: Hypochromasia 1+ (NORMAL); Platelet Estimate Decreased (Adequate)
[2020-09-09 12:47] LABS: Anisocytosis 1+ (NORMAL)
[2020-09-09 12:51] LABS: Add Urine Microscopic? YES; Appearance Urine Cloudy (Clear); Bacteria Urine Trace /hpf; Bilirubin Urine Negative (Negative); Blood Urine 3+ (Negative); Budding Yeast Urine Present /hpf; Color Urine Amber (Yellow); Glucose Urine UA 3+ mg/dL (Negative); Ketones Urine Negative (Negative); Leukocyte Esterase Ur 3+ LEU/UL (Negative); Mucus Urine Rare /lpf; Nitrate Urine Negative (Negative); Protein Urine 2+ mg/dL (Negative); RBC Urine 51-75 /hpf (0-2); Specific Grav Ur 1.012 (1.001-1.035); Squamous Epithelial Cell Urine Rare /hpf (Few); WBC Clumps Urine Present /HPF; WBC Urine >75 /hpf
--- NOTE | 2020-09-09 13:20 | PC.NURSE ---
Per EDP via verbal order readback give patient another 1L NS bolus.
--- NOTE | 2020-09-09 13:20 | PC.NURSE ---
Patient is not in a room with capnography, ERP aware, ED is full, ERP is ok without capnography with the medication that is ordered.
--- NOTE | 2020-09-09 13:30 | ECG_ITS ---
Measurements Intervals [place] Rate: 101 P: 72 MT: 135 QRS: 84 QRSD: 105 T: 76 QT: 325 QTc: 422 Interpretive Statements SINUS TACHYCARDIA POSSIBLE LEFT ATRIAL ENLARGEMENT INCOMPLETE RIGHT BUNDLE BRANCH BLOCK BASELINE ARTIFACT- I, II, III, AVR, AVL, AVF, V1-V6 BORDERLINE ECG Electronically Signed On 09-09-2020 15:17:00 CDT by Iván Aguillon D.O.
--- NOTE | 2020-09-09 13:35 | PC.NURSE ---
Per EDP via verbal order readback, give 100mg of ketamine via IVP 1336 100mg of ketamine given for sedation for synchronized cardioversion 1338 100J for synchronized cardioversion, successful, patient HR 104 in a sinus to sinus tachy rhythm 1339 procedure completed
[2020-09-09] MEDS: KETAMINE HCL (*CRX) 500 MG/10 ML VIAL 100 MG IV PUSH (13:36)
[2020-09-09] MEDS: ENOXAPARIN 80 MG/0.8 ML SYRINGE SUB-Q (13:54)
[2020-09-09 14:54] LABS: Reflex Lactic Acid Yes or No Add Lactic
[2020-09-09 14:56] LABS: Ammonia < 9 umol/L (9-30)
--- NOTE | 2020-09-09 16:06 | PC.NURSE ---
Per EDP via verbal order readback give patient an additional liter of NS due to patient's high lactic acid levels.
--- NOTE | 2020-09-09 19:28 | PC.NURSE ---
RN attempted to call report to Liz at [phone]. RN to call back after shift report
--- NOTE | 2020-09-09 19:56 | PC.NURSE ---
Report called to JAVIER Jose.
--- NOTE | 2020-09-09 20:07 | PC.NURSE ---
Called [facility] to request transport. ETA 2130 [facility] has no ALS trucks for transfer tonight.
== END 2020-09-09 20:50 | disposition short-term general hospital (02) ==
PROVIDERS: Emergency Provider Emergency Medicine
DX: I48.92 Unspecified atrial flutter (principal); N39.0 Urinary tract infection, site not specified; E87.2 Acidosis; A41.9 Sepsis, unspecified organism; N17.9 Acute kidney failure, unspecified; K74.60 Unspecified cirrhosis of liver
CPT/HCPCS: 36415; 51701; 71045; 80053; 81001; 82140; 83605; 83690; 84443; 84484; 85025; 85055; 85610; 85730; 86140; 87040; 87077; 87086; 87088; 87147; 87186; 92960; 93005; 96361; 96365; 96367; 96372; 96375; 99291; J0153; J1650; J2543; J3370; J7030